=== PATIENT | female | born 2000 | race Caucasian/White ===

== ENCOUNTER 2019-05-03 19:22 | Emergency (ER) | payer OTHER, SELFPAY ==
[2019-05-03 20:34] VITALS: BP 115/69; PULSE 107; RESP 16; TEMP 37.2; O2SAT 100
--- NOTE | 2019-05-03 21:11 | ED.URI ---
HPI - URI/Sore Throat General Chief Complaint: Upper Respiratory Infection Stated Complaint: Sore Throat/SOB Time Seen by Provider: 05/03/19 21:18 Source: patient and RN notes reviewed Mode of arrival: ambulatory Limitations: no limitations History of Present Illness HPI Narrative: 18 year old female presents to [facility] care accompanied by daughter with complaint of three day history of nasal congestion and drainage and sore throat. Patient denies any cough or any acute shortness of breath or noted wheezing, patient states history of asthma.Patient states that nasal drainage is clear and she is eating and drinking well, denies any sinus pain or pressure. Patient states that she has had some low grade fevers denies any chills or sweats, states fatigue. MD elicited complaint: sore throat, rhinorrhea and nasal congestion Pertinent past history: asthma Onset (ago): day(s) (3) Consistency: constant Severity: moderate Pain scale (0-10): 5 Description of mucous: clear Able to tolerate fluids by mouth: Yes Exacerbating factors: swallowing Relieving factors: NSAID Associated symptoms: fever, rhinorrhea and sore throat Treatments prior to arrival: ibuprofen Related Data Allergies Allergy/AdvReac Type Severity Reaction Status Date / Time No Known Allergies Allergy Unverified 02/24/18 12:40 Review of Systems Review of Systems: Narrative: CONSTITUTIONAL: Reports low grade fever,no chills, or sweats. EYES: Denies visual changes, redness, or discharge. ENT positive for rhinorrhea, congestion, sore throat, no otalgia. CARDIOVASCULAR: Denies chest pain, palpitations, or edema. RESPIRATORY: Denies cough or acute dyspnea. GASTROINTESTINAL: Denies abdominal pain, nausea, vomiting, or diarrhea. GENITOURINARY: Denies dysuria or hematuria. SKIN: Denies rash or itching. MUSCULOSKELETAL: Denies back pain, joint pain, or myalgia. NEUROLOGIC: Denies headache, numbness, or weakness. PSYCHIATRIC: Denies anxiety or depression. All systems reviewed & are unremarkable except as noted in HPI and below PMFSH Past Medical History Medical History (Updated 05/10/19 @ 22:42 by Crystal Santos NP) Asthma Social History Social History (Updated 05/10/19 @ 22:42 by Crystal Santos NP) Living arrangements: with family Gender identity (if verbalized by the patient): Female Comments At time of signature, agree with nursing past medical,, social and family history. There is no relevant family history pertinent to the presenting complaint Exam Narrative: Exam Narrative: GENERAL: Well-appearing, well-nourished, and in no acute distress. HEAD: Normocephalic, atraumatic. EYES: PERRLA and EOMI. ENT: Nares clear, no rhinorrhea or epistaxis. Mucous membranes moist.TM's normal with good light reflex, Throat redness no lesions or exudate mild tonsil enlargement. NECK: Supple. no lymphadenopathy CHEST: Clear to auscultation. No respiratory distress. even non labored respirations.SAO2 100% on room air. HEART: Regular rate and rhythm. No murmur heard. Normal peripheral pulses. ABDOMEN: Soft, nontender, nondistended, normal active bowel sounds. EXTREMITIES: Normal range of motion. No edema. SKIN: Warm, dry, no rash. NEURO: No focal deficits. Alert and oriented x3. Course Vital Signs Vital signs: Vital Signs Temperature 37.2 C 05/03/19 20:34 Pulse Rate 107 H 05/03/19 20:34 Respiratory Rate 16 05/03/19 20:34 Blood Pressure 115/69 05/03/19 20:34 Pulse Oximetry 100 05/03/19 20:34 Temperature 37.2 C 05/03/19 20:34 Pulse Rate 107 H 05/03/19 20:34 Respiratory Rate 16 05/03/19 20:34 Blood Pressure 115/69 05/03/19 20:34 Pulse Oximetry 100 05/03/19 20:34 MDM - URI/Sore Throat Differential Diagnosis Differential diagnosis: Likely upper respiratory infection, viral infection, pharyngitis and other (Strep pharyngitis) Medical Records Attestation: I reviewed the patient's medical records. Lab Data Attestation: I reviewed
== END 2019-05-03 21:35 | disposition home or self-care (01) ==
PROVIDERS: Emergency Provider Registered Nurse
DX: J06.9 Acute upper respiratory infection, unspecified (principal); J02.9 Acute pharyngitis, unspecified; J45.909 Unspecified asthma, uncomplicated
CPT/HCPCS: 87081; 87880; 99213; G0463

== ENCOUNTER 2019-06-03 14:52 | Emergency (ER) | payer OTHER, SELFPAY ==
--- NOTE | 2019-06-03 14:59 | ED.GENADULT ---
HPI - General Adult General Chief complaint: Upper Respiratory Infection Stated complaint: right rib pain Time Seen by Provider: 06/03/19 15:21 Source: patient Mode of arrival: ambulatory Limitations: no limitations History of Present Illness HPI narrative: 18-year-old female patient presents to the [facility] with complaints of right rib pain and cough. Patient states that she was diagnosed with an upper respiratory infection/viral infection couple weeks ago and has been having a cough that has gotten better. Patient states that for the last 3 days she has had some rib pain especially with breathing and and twisting motion. Denies any injury that she is aware of. Denies any fevers. Denies any chest pain or shortness of breath at this time. Patient states she has took one aspirin yesterday for the pain but denies take anything else for the pain at this time. Patient denies or breast-feeding at this time. Related Data Home Medications Medication Instructions Recorded Confirmed medroxyprogesterone 150 mg IM [id number] 06/03/19 06/03/19 Allergies Allergy/AdvReac Type Severity Reaction Status Date / Time No Known Allergies Allergy Verified 06/03/19 14:57 Review of Systems Review of Systems: Narrative: CONSTITUTIONAL: Denies fever, chills, or sweats. EYES: Denies visual changes, redness, or discharge. ENT: Denies rhinorrhea, congestion, sore throat, or otalgia. CARDIOVASCULAR: Denies chest pain, palpitations, or edema. RESPIRATORY: Denies cough or dyspnea. GASTROINTESTINAL: Denies abdominal pain, nausea, vomiting, or diarrhea. GENITOURINARY: Denies dysuria or hematuria. SKIN: Denies rash or itching. MUSCULOSKELETAL: Denies back pain, joint pain, or myalgia. Positive right-sided rib pain x3 days NEUROLOGIC: Denies headache, numbness, or weakness. PSYCHIATRIC: Denies anxiety or depression. [facility] Past Medical History Medical History Asthma Social History Social History Gender identity (if verbalized by the patient): Female Comments At the time of my signature I agree with nursing past medical history, surgical, social, and family history. There is no relevant family history pertinent to the presenting complaint. Exam Narrative: Exam Narrative: GENERAL: Well-appearing, well-nourished, and in no acute distress. HEAD: Normocephalic, atraumatic. EYES: PERRLA and EOMI. ENT: Nares clear, no rhinorrhea or epistaxis. Mucous membranes moist. NECK: Supple. No lymphadenopathy CHEST: Clear to auscultation. No respiratory distress. Patient able talk in clear complete sentences. No tripoding noted. Patient does have slight tenderness on palpation to the 12th rib area but is most likely muscle pain. Ribs appear to be stable at this time. HEART: Regular rate and rhythm. No murmur heard. Normal peripheral pulses. ABDOMEN: Soft, nontender, nondistended, normal active bowel sounds. EXTREMITIES: Normal range of motion. No edema. SKIN: Warm, dry, no rash. NEURO: No focal deficits. Alert and oriented x3. Course Vital Signs Vital signs: Vital Signs Temperature 37.3 C 06/03/19 15:00 Pulse Rate 104 H 06/03/19 15:00 Respiratory Rate 16 06/03/19 15:00 Blood Pressure 147/68 H 06/03/19 15:00 Pulse Oximetry 100 06/03/19 15:00 Temperature 37.3 C 06/03/19 15:00 Pulse Rate 104 H 06/03/19 15:00 Respiratory Rate 16 06/03/19 15:00 Blood Pressure 147/68 H 06/03/19 15:00 Pulse Oximetry 100 06/03/19 15:00 Vital signs reviewed. Medical Decision Making Differential Diagnosis Differential Diagnosis: Differential diagnosis: Allergic rhinitis, chronic sinusitis, tonsillitis, acute sinusitis, infectious mononucleosis, seasonal influenza, pertussis, diphtheria, meningococcal disease, viral syndrome, viral bronchitis, RSV. Discussed with patient most likely she has inflammation and has pulled so
[2019-06-03 15:00] VITALS: BP 147/68; PULSE 104; RESP 16; TEMP 37.3; O2SAT 100
== END 2019-06-03 15:33 | disposition home or self-care (01) ==
PROVIDERS: Emergency Provider Nurse Practitioner Family
DX: M94.0 Chondrocostal junction syndrome [Tietze] (principal); J45.909 Unspecified asthma, uncomplicated
CPT/HCPCS: 99211; G0463

== ENCOUNTER 2019-09-13 17:06 | Emergency (ER) | payer OTHER, SELFPAY ==
[2019-09-13 17:21] VITALS: BP 146/84; PULSE 124; RESP 24; TEMP 37.4; O2SAT 100
[2019-09-13] MEDS: PROMETHAZINE HCL 25 MG/ML AMPUL IM (17:34)
--- NOTE | 2019-09-13 17:37 | ED.ANXIETY ---
HPI - Anxiety General Chief Complaint: Anxiety Stated Complaint: vomiting Time Seen by Provider: 09/13/19 17:37 Source: patient Mode of arrival: ambulatory Limitations: no limitations History of Present Illness HPI narrative: Emy Montelongo is a 19 yo female with a PMH of asthma who comes to express care with c/o asthma attack. Appears very anxious. Attack started today, used rescue inhaler x 5, last asthma attack 2 years ago. She states she does not know what triggered this episode. In process of changing pcp but sttaes that she can do this without assistance Related Data Home Medications Medication Instructions Recorded Confirmed medroxyprogesterone 150 mg IM [id number] 06/03/19 06/03/19 Allergies Allergy/AdvReac Type Severity Reaction Status Date / Time No Known Allergies Allergy Verified 06/03/19 14:57 Review of Systems Review of Systems: Narrative: CONSTITUTIONAL: Denies fever, chills, sweats. EYES: Denies visual changes, redness, discharge. ENT: Denies rhinorrhea, congestion, sore throat, otalgia. CARDIOVASCULAR: Denies chest pain, palpitations, edema. RESPIRATORY: Denies dyspnea, no wheezing, mild dry cough, increased respiratory effort GASTROINTESTINAL: Denies abdominal pain, nausea, vomiting, diarrhea. GENITOURINARY: Denies dysuria, hematuria, abnormal discharge SKIN: Denies rash or itching. NEUROLOGIC: Denies numbness, or focal weakness. PSYCHIATRIC: Denies anxiety or depression. [facility] Past Medical History Medical History Asthma Family History Family History Other Hypertension Social History Social History (Updated 09/13/19 @ 17:45 by Nasra Carroll CNP) Smoking status: Never smoker Alcohol intake: current Gender identity (if verbalized by the patient): Female Comments At time of signature, I agree with nursing past medical, surgical, social and family history. There is no relevant family history pertinent to the presenting complaint. Exam Narrative: Exam Narrative: GENERAL: This is a well-nourished, well-developed patient, in mild distress. Appears very anxious HEAD: normocephalic, atraumatic. EYES: Sclera clear/white. Vision is grossly intact. EARS: External ears normal, Hearing grossly intact. NOSE: External nose normal without nasal discharge, nares without redness, no rhinorrhea. THROAT: Mucous membranes moist, NECK: Neck supple, non-tender CARDIOVASCULAR: Regular rate and rhythm without murmurs, gallops, or rubs. RESPIRATORY: Coarse to auscultation. Breath sounds equal bilaterally. Nmild basilar wheezes, no rales, or rhonchi. GASTROINTESTINAL: Abdomen soft, non-tender, SKIN: warm, intact with no suspicious lesions or rash, good texture and turgor. NEURO: awake, alert, and oriented to person, place and time. There were no obvious focal neurologic abnormalities. Steady gait EXTREMITIES: Normal range of motion. BACK: Nontender without deformity Course Course Emergency Course: Given Phenergan 25 mg IM for anxiety Started on prednisone 40 mg a day x5 days with use of albuterol L inhaler as needed. patient to follow-up with a primary care physician Vital Signs Vital signs: Vital Signs Temperature 99.3 F 09/13/19 17:21 Pulse Rate 124 H 09/13/19 17:21 Respiratory Rate 24 H 09/13/19 17:21 Blood Pressure 146/84 H 09/13/19 17:21 Pulse Oximetry 100 09/13/19 17:21 Temperature 99.3 F 09/13/19 17:21 Pulse Rate 124 H 09/13/19 17:21 Respiratory Rate 24 H 09/13/19 17:21 Blood Pressure 146/84 H 09/13/19 17:21 Pulse Oximetry 100 09/13/19 17:21 MDM - Anxiety Differential Diagnosis Differential diagnosis: Likely hyperventilation, panic disorder, acute anxiety and other (asthma attack) Discharge Plan Discharge Clinical Impression: Acute anxiety Asthma attack Qualifiers: Asthma severity: mild Asthma persistence: intermittent Q
== END 2019-09-13 18:10 | disposition home or self-care (01) ==
PROVIDERS: Emergency Provider Nurse Practitioner
DX: F41.8 Other specified anxiety disorders (principal); J45.21 Mild intermittent asthma with (acute) exacerbation
CPT/HCPCS: 96372; 99213; G0463; J2550

== ENCOUNTER 2020-06-03 18:56 | Emergency (ER) | payer OTHER, SELFPAY ==
--- NOTE | 2020-06-03 19:00 | ED.LOWEXIN ---
HPI - Extremity Injury (Lower) General Chief Complaint: Extremity Problem,Nontraumatic Stated Complaint: right ankle pain Time Seen by Provider: 06/03/20 19:00 Source: patient and RN notes reviewed History of Present Illness HPI Narrative: Patient is a 19-year-old female who presents the urgent care with complaints of right ankle pain. Patient states is been ongoing for weeks and seems to have worsened in the last couple days. Patient states that she stands on her feet all day working at [employer]. Patient denies of any injury or fall. States that she sprained her ankles in the past but nothing recent. States that she has been wearing an ankle brace as well as elevating, ice. No other acute complaints. No acute distress noted. Patient aware of the plan of care. Some parts of this dictation were generated by voice recognition software and may contain typographical and/or grammatical inaccuracies. Related Data Home Medications Medication Instructions Recorded Confirmed medroxyprogesterone 150 mg IM [id number] 06/03/19 06/03/20 Allergies Allergy/AdvReac Type Severity Reaction Status Date / Time No Known Allergies Allergy Verified 06/03/20 19:07 Review of Systems Review of Systems: Narrative: CONSTITUTIONAL: Denies fever, chills, or sweats. EYES: Denies visual changes, redness, or discharge. ENT: Denies rhinorrhea, congestion, sore throat, or otalgia. CARDIOVASCULAR: Denies chest pain, palpitations, or edema. RESPIRATORY: Denies cough or dyspnea. GASTROINTESTINAL: Denies abdominal pain, nausea, vomiting, or diarrhea. GENITOURINARY: Denies dysuria or hematuria. SKIN: Denies rash or itching. MUSCULOSKELETAL: Reports of right ankle pain NEUROLOGIC: Denies headache, numbness, or weakness. All other systems reviewed are negative, except as documented in HPI. [facility] Past Medical History Medical History (Updated 06/03/20 @ 19:16 by ELIE Brand) Asthma Family History Family History Other Hypertension Social History Social History (Updated 09/13/19 @ 17:45 by Nasra Carroll CNP) Smoking status: Never smoker Alcohol intake: current Gender identity (if verbalized by the patient): Female Comments At the time of my signature, I reviewed and agree with the nursing past medical, surgical, social, and family history. There is no relevant family history pertinent to the patient complaint. Exam Narrative: Exam Narrative: GENERAL: This is a well-nourished, well-developed patient, in no apparent distress. HEAD: normocephalic, atraumatic. EYES: PERRL. Sclera clear/white. Vision is grossly intact. EARS: External ears normal NOSE: External nose normal with no obvious nasal discharge, nares without redness, no rhinorrhea. THROAT: Mucous membranes moist NECK: Neck supple SKIN: warm, intact with no suspicious lesions or rash, good texture and turgor. NEURO: awake, alert, and oriented to person, place and time. There were no obvious focal neurologic abnormalities. EXTREMITIES: No obvious deformity or fracture noted to the right lower extremity. Positive strong right pedal pulse with capillary refill less than 2 seconds. Mild pain with weightbearing activity. Otherwise range of motion within normal limits. No obvious ecchymosis. Very mild edema noted distal to the right medial malleolus. Course Vital Signs Vital signs: Vital Signs Temperature 98.9 F 06/03/20 19:13 Pulse Rate 112 H 06/03/20 19:13 Respiratory Rate 16 06/03/20 19:13 Blood Pressure 134/80 06/03/20 19:13 Pulse Oximetry 100 06/03/20 19:13 Temperature 98.9 F 06/03/20 19:13 Pulse Rate 112 H 06/03/20 19:13 Respiratory Rate 16 06/03/20 19:13 Blood Pressure 134/80 06/03/20 19:13 Pulse Oximetry 100 06/03/20 19:13 Reviewed MDM - Extremity Injury (Lower) MDM Narrative Medical decision making narrative: Advised the patient to continue to wear her ankle b
[2020-06-03 19:13] VITALS: BP 134/80; PULSE 112; RESP 16; TEMP 37.2; O2SAT 100
== END 2020-06-03 19:24 | disposition home or self-care (01) ==
PROVIDERS: Emergency Provider Nurse Practitioner Family
DX: M77.51 Other enthesopathy of right foot and ankle (principal); J45.909 Unspecified asthma, uncomplicated
CPT/HCPCS: 99213; G0463

== ENCOUNTER 2020-06-06 18:52 | Emergency (ER) | payer OTHER, SELFPAY ==
[2020-06-06 19:10] VITALS: BP 126/77; PULSE 128; RESP 20; TEMP 39.2; O2SAT 100
[2020-06-06 19:11] VITALS: TEMP 39.2
[2020-06-06] MEDS: ACETAMINOPHEN 500 MG TABLET 1000 MG PO (19:11)
--- NOTE | 2020-06-06 19:28 | ED.URI ---
HPI - URI/Sore Throat General Chief Complaint: Upper Respiratory Infection Stated Complaint: Sore Throat Time Seen by Provider: 06/06/20 19:13 Source: patient and RN notes reviewed Mode of arrival: ambulatory Limitations: no limitations History of Present Illness HPI Narrative: Patient presents today complaint of a 2-day history of sore throat that has worsened significantly since this morning with chills that started this morning and a mild headache. Denies known fever, ear pain, cough, congestion, rhinorrhea, difficulty swallowing, shortness of breath. She took ibuprofen 800 mg a few hours prior to arrival. States she has been sleeping most the day because she has been so tired. Pain increases with swallowing. No recent antibiotic use. MD elicited complaint: sore throat Related Data Allergies Allergy/AdvReac Type Severity Reaction Status Date / Time No Known Allergies Allergy Verified 06/06/20 18:58 Review of Systems Review of Systems: Narrative: CONSTITUTIONAL: Denies body aches, fever, or sweats. + Chills EYES: Denies visual changes, redness, or discharge. ENT: Denies rhinorrhea, congestion, or otalgia.+ Sore throat CARDIOVASCULAR: Denies chest pain, palpitations, or edema. RESPIRATORY: Denies cough or dyspnea. GASTROINTESTINAL: Denies abdominal pain, nausea, vomiting, or diarrhea. GENITOURINARY: Denies dysuria or hematuria. SKIN: Denies rash, itching, or wounds. MUSCULOSKELETAL: Denies back pain, joint pain, or myalgia. NEUROLOGIC: Denies numbness, tingling, or weakness. + Headache PSYCH: Denies depression or anxiety. PMFSH Past Medical History Medical History (Updated 06/07/20 @ 00:00 by Sal Brooks) Asthma Family History Family History Other Hypertension Social History Social History (Updated 09/13/19 @ 17:45 by Nasra Carroll CNP) Smoking status: Never smoker Alcohol intake: current Gender identity (if verbalized by the patient): Female Comments At time of signature, I have reviewed and agree with nursing past medical, surgical, social and family history unless otherwise noted. Please see nursing chart for further information. There is no relevant family history pertinent to the presenting complaint Exam Narrative: Exam Narrative: GENERAL: ill-appearing, well-nourished, and in no acute distress. HEAD: Normocephalic, atraumatic. EYES: EOMI. No redness or drainage. Conjunctivae normal. ENT: Mucous membranes pink and moist. Nares clear. No rhinorrhea. TMs normal bilaterally. Throat moderately erythematous and edematous. Tonsils 3+ without exudate. Uvula midline. Grimacing with swallowing. NECK: Normal AROM. Supple. Bilateral anterior cervical chain lymphadenopathy. CHEST: No respiratory distress. Clear to auscultation. HEART: Regular rhythm. + Tachycardia. No murmur appreciated. Normal peripheral pulses. EXTREMITIES: Normal range of motion. No edema. SKIN: Warm, dry, no rash. Capillary refill normal. Normal skin turgor. NEURO: No focal deficits. Alert and oriented x3. Gait steady. PSYCH: Normal affect. No signs of depression or anxiety. Course Vital Signs Vital signs: Vital Signs Temperature 102.5 F H 06/06/20 19:10 Pulse Rate 128 H 06/06/20 19:10 Respiratory Rate 20 06/06/20 19:10 Blood Pressure 126/77 06/06/20 19:10 Pulse Oximetry 100 06/06/20 19:10 Temperature 100.9 F H 06/06/20 19:41 Pulse Rate 128 H 06/06/20 19:10 Respiratory Rate 100 H 06/06/20 19:41 Blood Pressure 126/77 06/06/20 19:10 Pulse Oximetry 100 06/06/20 19:10 Reviewed. Pt has been instructed to follow up with her PCP regarding her elevated blood pressure today. MDM - URI/Sore Throat Differential Diagnosis Differential diagnosis: Likely upper respiratory infection, otitis media, viral infection, pharyngitis and other (Tonsillitis, strep throat, mononucleosis) Lab Data Attestation: I reviewed the patient's lab r
[2020-06-06 19:41] VITALS: RESP 100; TEMP 38.3
== END 2020-06-06 19:41 | disposition home or self-care (01) ==
PROVIDERS: Emergency Provider Nurse Practitioner
DX: J03.00 Acute streptococcal tonsillitis, unspecified (principal); J45.909 Unspecified asthma, uncomplicated
CPT/HCPCS: 87880; 96372; 99213; A9270; G0463; J1100

== ENCOUNTER 2021-10-17 16:49 | Emergency (ER) | payer OTHER, SELFPAY ==
--- NOTE | ~2021-10-17 | XR_ITS ---
EXAM: XR forearm RT 2V DATE: 10/17/2021 17:15 HISTORY: INJURY 2 DAYS AGO, BRUISING MID SHAFT OF RT FOREAR . COMPARISON: None available. FINDINGS: Normal mineralization. No fracture or dislocation. No lytic or blastic lesion. Joint space s are maintained. No erosion or periosteal change. Posterior forearm soft tissue swelling. IMPRESSION: No acute osseous finding in the right forearm. Reviewed, dictated and finalized at location K.
[2021-10-17 16:57] VITALS: BP 119/67; PULSE 91; RESP 16; TEMP 36.7; O2SAT 100
--- NOTE | 2021-10-17 17:26 | ED.UPPEXIN ---
HPI - Extremity Injury (Upper) General Chief Complaint: Extremity Injury, Upper Stated Complaint: Right Arm Pain Time Seen by Provider: 10/17/21 17:18 Source: patient Mode of arrival: ambulatory Limitations: no limitations History of Present Illness HPI narrative: Patient presents today complaining of right forearm pain. States she slipped and fell and struck her arm against a stepstool 2 days ago. She currently rates her pain 4/10, which increases with movement. She has tried Tylenol and ibuprofen without relief. She reports some tingling in her hand. Related Data Allergies Allergy/AdvReac Type Severity Reaction Status Date / Time No Known Allergies Allergy Verified 10/17/21 17:25 Review of Systems Review of Systems: CONSTITUTIONAL: Denies body aches, fever, chills, or sweats. EYES: Denies visual changes, redness, or discharge. ENT: Denies rhinorrhea, congestion, sore throat, or otalgia. CARDIOVASCULAR: Denies chest pain, palpitations, or edema. RESPIRATORY: Denies cough or dyspnea. GASTROINTESTINAL: Denies abdominal pain, nausea, vomiting, or diarrhea. GENITOURINARY: Denies dysuria or hematuria. SKIN: Denies rash, itching, or wounds. MUSCULOSKELETAL: Denies back pain, or myalgia.+Right forearm pain NEUROLOGIC: Denies headache, numbness, or weakness.+Right hand tingling PSYCH: Denies depression or anxiety. [facility] Past Medical History Medical History (Updated 10/17/21 @ 18:03 by Isabel Gonzales, [facility], ) Asthma Family History Family History Other Hypertension Social History Social History Smoking status: Never smoker Alcohol intake: current Gender identity (if verbalized by the patient): Female Comments At time of signature, I have reviewed and agree with nursing past medical, surgical, social and family history unless otherwise noted. Please see nursing chart for further information. There is no relevant family history pertinent to the presenting complaint Exam Narrative: GENERAL: Well-appearing, well-nourished, and in no acute distress. HEAD: Normocephalic, atraumatic. EYES: EOMI. No redness or drainage. Conjunctivae normal. ENT: Mucous membranes pink and moist. NECK: Normal AROM. CHEST: No respiratory distress. EXTREMITIES: Right forearm: Tenderness to the mid ulna. No edema, ecchymosis, or erythema noted. No deformity noted. Distal sensation intact. Capillary refill normal. Radial pulse normal. Full range of motion of the fingers, wrist, and elbow. Pain in the forearm with range of motion of the elbow. SKIN: Warm, dry, no rash. Capillary refill normal. Normal skin turgor. NEURO: No focal deficits. Alert and oriented x3. Gait steady. PSYCH: Normal affect. No signs of depression or anxiety. Course Course Level of Care: Express Care Visit Vital Signs Vital signs: Vital Signs Temperature 98.1 F 10/17/21 16:57 Pulse Rate 91 10/17/21 16:57 Respiratory Rate 16 10/17/21 16:57 Blood Pressure 119/67 10/17/21 16:57 Pulse Oximetry 100 10/17/21 16:57 Oxygen Delivery Room Air 10/17/21 16:57 Temperature 98.1 F 10/17/21 16:57 Pulse Rate 91 10/17/21 16:57 Respiratory Rate 16 10/17/21 16:57 Blood Pressure 119/67 10/17/21 16:57 Pulse Oximetry 100 10/17/21 16:57 Oxygen Delivery Room Air 10/17/21 16:57 Reviewed MDM - Extremity Injury (Upper) Differential Diagnosis Differential diagnosis: Likely other (Contusion, fracture) Imaging Data Radiologist's impression: ITS Impressions Forearm X-Ray 10/17/21 17:48 IMPRESSION: No acute osseous finding in the right forearm. Critical Care Time Critical Care Time Critical Care Time: No Discharge Plan Discharge Clinical Impression: Contusion of forearm, right Patient Disposition: Home, Self-Care Condition: Stable Instructions: Contusion in
== END 2021-10-17 18:07 | disposition home or self-care (01) ==
PROVIDERS: Emergency Provider Nurse Practitioner
DX: S50.11XA Contusion of right forearm, initial encounter (principal); W01.198A Fall on same level from slipping, tripping and stumbling with subsequent striking against other object, initial encounter; J45.909 Unspecified asthma, uncomplicated
CPT/HCPCS: 73090; 99213; G0463

== ENCOUNTER 2022-01-06 13:13 | Emergency (ER) | payer OTHER, SELFPAY ==
[2022-01-06 13:25] VITALS: BP 110/60; PULSE 116; RESP 16; TEMP 37.2; O2SAT 100
--- NOTE | 2022-01-06 14:18 | ED.URI ---
HPI - URI/Sore Throat General Chief Complaint: Upper Respiratory Infection Stated Complaint: Coughing, Sore Throat Time Seen by Provider: 01/06/22 13:50 Source: patient Mode of arrival: ambulatory Limitations: no limitations History of Present Illness HPI Narrative: Emy is a 21-year-old female patient presenting to the clinic today with complaints of coughing and sore throat x 2-3 days. She denies any fever or chills. MD elicited complaint: cough, sore throat and nasal congestion Related Data Home Medications Medication Instructions Recorded Confirmed No Home Medications 01/06/22 01/06/22 Allergies Allergy/AdvReac Type Severity Reaction Status Date / Time No Known Allergies Allergy Verified 01/06/22 13:38 Review of Systems Review of Systems: Pertinent positives per HPI. Patient denies any fever, chills, rash, headache, visual changes, dizziness, shortness of breath, chest pain, palpitations, nausea, vomiting, diarrhea, constipation, abdominal pain, or any urinary issues. PMFSH Past Medical History Medical History Asthma Family History Family History Other Hypertension Social History Social History Smoking status: Never smoker Alcohol intake: current Gender identity (if verbalized by the patient): Female Comments At the time of my signature, I reviewed and agree with the nursing past medical, surgical, social, and family history. There is no relevant family history pertinent to the patient complaint. Exam Narrative: General: Well-developed, well nourished, in no apparent distress Head: Normocephalic, atraumatic Eyes: Pupils equally round and reactive to light bilaterally, EOM intact, sclera and conjunctive clear, no discharge, lids normal Ears: TMs intact and clear, ear canals clear, no drainage, grossly hearing normal. Nose: Nares patent, clear nasal discharge, mild inflammation, no sinus tenderness. Mouth: Oral pharynx without lesions or masses, good dentition, MMM. postnasal drip Neck: Supple, trachea midline, no enlargement of anterior or posterior cervical nodes, no thyroid masses or goiter palpable. Cardio: Regular rate and rhythm, s1 and s2 normal, no murmur appreciated. Resp: Clear to auscultation bilaterally, no rhonchi, rales, wheezing or rubs Course Course Emergency Course: Portions of this record may have been created with voice recognition software. Level of Care: Express Care Visit Vital Signs Vital signs: Vital Signs Temperature 37.2 C 01/06/22 13:25 Pulse Rate 116 H 01/06/22 13:25 Respiratory Rate 16 01/06/22 13:25 Blood Pressure 110/60 01/06/22 13:25 Pulse Oximetry 100 01/06/22 13:25 Oxygen Delivery Room Air 01/06/22 13:25 Temperature 37.2 C 01/06/22 13:25 Pulse Rate 116 H 01/06/22 13:25 Respiratory Rate 16 01/06/22 13:25 Blood Pressure 110/60 01/06/22 13:25 Pulse Oximetry 100 01/06/22 13:25 Oxygen Delivery Room Air 01/06/22 13:25 Vital signs reviewed MDM - URI/Sore Throat MDM Narrative Medical decision making narrative: at the time of the patient is resting comfortably on the exam table. Influenza and strep testing were obtained and were negative in the clinic today. I suspect patient has an upper respiratory infection /pharyngitis.Supportive measures were discussed with the patient she voiced understanding of discharge instructions. Differential Diagnosis Differential diagnosis: Likely sinusitis, viral infection, influenza and pharyngitis Lab Data Labs: Influenza A Screen Negative Reference Range: Negative Influenza B Screen Negative Reference Range: Negative Strep Screen Pre
== END 2022-01-06 14:23 | disposition home or self-care (01) ==
PROVIDERS: Emergency Provider Nurse Practitioner Family
DX: J06.9 Acute upper respiratory infection, unspecified (principal); J02.9 Acute pharyngitis, unspecified; J45.909 Unspecified asthma, uncomplicated
CPT/HCPCS: 87081; 87147; 87804; 87880; 99213; G0463

== ENCOUNTER 2022-02-02 08:34 | Emergency (ER) | payer OTHER, SELFPAY ==
--- NOTE | 2022-02-02 09:00 | ED.FEMALEGU ---
HPI - Female Genitourinary General Chief complaint: Urogenital-Female Stated complaint: Vaginal Problems Time Seen by Provider: 02/02/22 09:08 Source: patient Mode of arrival: ambulatory Limitations: no limitations History of Present Illness HPI Narrative: Ms. Kt Stack is a 21-year-old female patient presenting to the clinic today with complaints of vaginal issues. She reports she has been having some lower abdominal pain x2 weeks with yellowish white vaginal discharge x1 0.5 weeks. She denies any fever chills. She denies any flank pain. He is sexually active. Her last menstrual period was on January 08. She denies any chance of . Related Data Allergies Allergy/AdvReac Type Severity Reaction Status Date / Time No Known Allergies Allergy Verified 02/02/22 09:11 Review of Systems Review of Systems: Pertinent positives per HPI. Patient denies any fever, chills, rash, headache, visual changes, dizziness, cough, runny nose, sore throat, shortness of breath, chest pain, palpitations, nausea, vomiting, diarrhea, constipation, PMFSH Past Medical History Medical History (Updated 02/02/22 @ 10:00 by Ric Sherman APRN) Asthma Family History Family History Other Hypertension Social History Social History Smoking status: Never smoker Alcohol intake: current Gender identity (if verbalized by the patient): Female Comments At the time of my signature, I reviewed and agree with the nursing past medical, surgical, social, and family history. There is no relevant family history pertinent to the patient complaint. Exam Narrative: General: Well-developed, obese, in no apparent distress Head: Normocephalic, atraumatic. Cardio: Regular rate and rhythm, s1 and s2 normal, no murmur appreciated. Resp: Clear to auscultation bilaterally, no rhonchi, rales, wheezing or rubs. Abdomen: Soft, pliable, bowel sounds present in all quadrants, non-tender to palpation, no CVAT tenderness. : Pelvic exam performed with (Melodie GRANDA) at bedside. Verbal consent obtained from patient. Normal external female genitalia without lesions or masses, vulva is red and excoriated Urinary meatus: patent without discharge, Vagina: No lesions, or masses, white yellowish discharge in the pelvic vault Cervix: pink and friable without mass, lesions, yellowish white discharge coming from cervical os, tender to palpation of the cervix Adnexa: without palpable mass or tenderness. Course Course Emergency Course: Portions of this record may have been created with voice recognition software. Level of Care: Express Care Visit Vital Signs Vital signs: Vital Signs Temperature 36.3 C L 02/02/22 09:08 Pulse Rate 120 H 02/02/22 09:08 Respiratory Rate 18 02/02/22 09:08 Blood Pressure 141/79 H 02/02/22 09:08 Pulse Oximetry 100 02/02/22 09:08 Oxygen Delivery Room Air 02/02/22 09:08 Temperature 36.3 C L 02/02/22 09:08 Pulse Rate 120 H 02/02/22 09:08 Respiratory Rate 18 02/02/22 09:08 Blood Pressure 141/79 H 02/02/22 09:08 Pulse Oximetry 100 02/02/22 09:08 Oxygen Delivery Room Air 02/02/22 09:08 Vital signs reviewed MDM - Female Genitourinary MDM Narrative Medical decision making narrative: at the time of visit patient is resting comfortably on the exam table. I suspect the patient has STD likely chlamydia. She has cervicitis with vaginal discharge and lower abdominal pain. (pid) .Pelvic exam was completed and she has yellowish white discharge coming from the cervix and the cervix is very friable and tender to palpation. Rocephin 500 mg IM given in the clinic today, will send prescription for doxycycline and metronidazole to the pharmacy. Supportive measures were discussed with the patient she voiced understanding of discharge instructions and agrees to tr
[2022-02-02 09:08] VITALS: BP 141/79; PULSE 120; RESP 18; TEMP 36.3; O2SAT 100
[2022-02-02] MEDS: cefTRIAXone 500 MG, LIDOCAINE HCL 1% LOCAL INJ 1 ML IM (09:56)
== END 2022-02-02 10:10 | disposition home or self-care (01) ==
PROVIDERS: Emergency Provider Nurse Practitioner Family
DX: N72 Inflammatory disease of cervix uteri (principal); R10.30 Lower abdominal pain, unspecified; J45.909 Unspecified asthma, uncomplicated
CPT/HCPCS: 81003; 87070; 87086; 87088; 87491; 87591; 87661; 96372; 99213; G0463; J0696

== ENCOUNTER 2022-02-25 18:53 | Emergency (ER) | payer OTHER, SELFPAY ==
[2022-02-25 19:04] VITALS: BP 124/74; PULSE 104; RESP 16; TEMP 36.8; O2SAT 100
--- NOTE | 2022-02-25 19:16 | ED.DENTAL ---
HPI - Dental/Oral General Chief complaint: Dental/Oral Stated complaint: Dental Pain Time Seen by Provider: 02/25/22 19:17 Source: patient Mode of arrival: ambulatory History of Present Illness HPI Narrative: 21-year-old female presented for complaint of right lower gum swelling and pain for 2 days. She endorses 2 nights ago she chipped a tooth while sleeping. She has attempted Tylenol and ibuprofen and Orajel without relief. She denies nausea, vomiting, diarrhea, fevers or chills. Patient does not have a dentist. MD Complaint: tooth pain Related Data Allergies Allergy/AdvReac Type Severity Reaction Status Date / Time No Known Allergies Allergy Verified 02/25/22 19:00 Review of Systems Review of Systems: CONSTITUTIONAL: Denies body aches, fever, chills ENT: Denies rhinorrhea, congestion, sore throat, or otalgia. Reports dental pain CARDIOVASCULAR: Denies chest pain, palpitations RESPIRATORY: Denies cough or dyspnea. SKIN: Denies rash, itching, or wounds. MUSCULOSKELETAL: Denies myalgia. NEUROLOGIC: Denies headache, numbness, tingling, or weakness. [facility] Past Medical History Medical History Asthma Family History Family History Other Hypertension Social History Social History Smoking status: Never smoker Alcohol intake: current Gender identity (if verbalized by the patient): Female Comments At time of signature, I have reviewed and agree with nursing past medical, surgical, social and family history unless otherwise noted. Please see nursing chart for further information. There is no relevant family history pertinent to the presenting complaint Exam Narrative: GENERAL: Appears in pain; no acute distress. HEAD: Normocephalic, atraumatic. EYES: EOMI. No redness or drainage. Conjunctivae normal. ENT: Dental pain location of fractured teeth at #29 and #30; mild gum/jaw swelling and tenderness; poor dentition throughout with gingivitis and multiple caries/broken teeth Mucous membranes pink and moist. TMs normal bilaterally. Throat normal. Uvula midline. NECK: Normal AROM. No lymphadenopathy. CHEST: No respiratory distress. Clear to auscultation. HEART: Regular rate and rhythm. No murmur appreciated. SKIN: Warm, dry, no rash. Normal skin turgor. NEURO: Alert and oriented x3. Gait steady. Course Course Emergency Course: Patient is aware of diagnosis, understands and agrees to treatment plan. Anticipatory guidance given. Patient agrees to follow-up as directed and is aware of reasons to seek care at the emergency department. Portions of this record may have been created with voice recognition software Level of Care: Express Care Visit Vital Signs Vital signs: Vital Signs Temperature 98.3 F 02/25/22 19:04 Pulse Rate 104 H 02/25/22 19:04 Respiratory Rate 16 02/25/22 19:04 Blood Pressure 124/74 02/25/22 19:04 Pulse Oximetry 100 02/25/22 19:04 Oxygen Delivery Room Air 02/25/22 19:04 Temperature 98.3 F 02/25/22 19:04 Pulse Rate 104 H 02/25/22 19:04 Respiratory Rate 16 02/25/22 19:04 Blood Pressure 124/74 02/25/22 19:04 Pulse Oximetry 100 02/25/22 19:04 Oxygen Delivery Room Air 02/25/22 19:04 MDM - Dental/Oral MDM Narrative Medical decision making narrative: There are no focal signs of space occupying lesions that are compromising to the airway; Patient is non-toxic appearing. The floor of the mouth is soft with no signs of Vic's Angina; no induration below mandible, no neck pain. Patient is without trismus or drooling and able to swallow secretions. Patient is felt appropriate for discharge home with dental follow up. Rx abx and ibuprofen. Differential Diagnosis Differential diagnosis: Likely gingival abscess, dental caries, toothache, dental abscess, fracture of too
== END 2022-02-25 19:36 | disposition home or self-care (01) ==
PROVIDERS: Emergency Provider Nurse Practitioner Family
DX: K08.89 Other specified disorders of teeth and supporting structures (principal); J45.909 Unspecified asthma, uncomplicated
CPT/HCPCS: 99213; G0463

== ENCOUNTER 2022-06-08 10:40 | Emergency (ER) | payer OTHER, SELFPAY ==
[2022-06-08 10:56] VITALS: BP 142/79; PULSE 83; RESP 16; TEMP 36.4; O2SAT 100
--- NOTE | 2022-06-08 11:19 | ED.URI ---
HPI - URI/Sore Throat General Chief Complaint: Upper Respiratory Infection Stated Complaint: Sore Throat Time Seen by Provider: 06/08/22 11:00 Source: patient Mode of arrival: ambulatory Limitations: no limitations History of Present Illness HPI Narrative: Emy is a 21-year-old female patient presenting to the clinic today with complaints of sore throat, cough, and nasal congestion times 2 days. Her daughter tested positive for strep last week. She denies any fever chills MD elicited complaint: sore throat and nasal congestion Related Data Home Medications Medication Instructions Recorded Confirmed No Home Medications 06/08/22 06/08/22 Allergies Allergy/AdvReac Type Severity Reaction Status Date / Time No Known Allergies Allergy Verified 06/08/22 11:15 Review of Systems Review of Systems: Pertinent positives per HPI. Patient denies any fever, chills, rash, headache, visual changes, dizziness,shortness of breath, chest pain, palpitations, nausea, vomiting, diarrhea, constipation, abdominal pain, or any urinary issues. [facility] Past Medical History Medical History (Updated 06/08/22 @ 11:21 by Ric Sherman APRN) Asthma Family History Family History Other Hypertension Social History Social History Smoking status: Never smoker Alcohol intake: current Living arrangements: with family Gender identity (if verbalized by the patient): Female Comments At the time of my signature, I reviewed and agree with the nursing past medical, surgical, social, and family history. There is no relevant family history pertinent to the patient complaint. Exam Narrative: General: Well-developed, well nourished, in no apparent distress Head: Normocephalic, atraumatic Eyes: Pupils equally round and reactive to light bilaterally, EOM intact, sclera and conjunctive clear, no discharge, lids normal Ears: TMs intact and clear, ear canals clear, no drainage, grossly hearing normal. Nose: Nares patent, clear nasal discharge, mild inflammation, no sinus tenderness. Mouth: Oral pharynx without lesions or masses, good dentition, MMM. Neck: Supple, trachea midline, no enlargement of anterior or posterior cervical nodes, no thyroid masses or goiter palpable. Cardio: Regular rate and rhythm, s1 and s2 normal, no murmur appreciated. Resp: Clear to auscultation bilaterally, no rhonchi, rales, wheezing or rubs Course Course Emergency Course: Portions of this record may have been created with voice recognition software. Level of Care: Express Care Visit Vital Signs Vital signs: Vital Signs Temperature 36.4 C 06/08/22 10:56 Pulse Rate 83 06/08/22 10:56 Respiratory Rate 16 06/08/22 10:56 Blood Pressure 142/79 H 06/08/22 10:56 Pulse Oximetry 100 06/08/22 10:56 Oxygen Delivery Room Air 06/08/22 10:56 Temperature 36.4 C 06/08/22 10:56 Pulse Rate 83 06/08/22 10:56 Respiratory Rate 16 06/08/22 10:56 Blood Pressure 142/79 H 06/08/22 10:56 Pulse Oximetry 100 06/08/22 10:56 Oxygen Delivery Room Air 06/08/22 10:56 Vital signs reviewed MDM - URI/Sore Throat MDM Narrative Medical decision making narrative: At the time of visit patient is resting comfortably on exam table. Strep screen was obtained and was negative in the clinic today. Will send strep for culture. Patient declining COVID testing. Supportive measures were discussed with the patient she voiced understanding discharge instructions and agrees to treatment plan. Differential Diagnosis Differential diagnosis: Likely upper respiratory infection, otitis media, sinusitis, viral infection, bronchitis, influenza, pharyngitis and other (COVID) Lab Data Labs: Strep Screen Presumptive Negative *(Reference Range: Negative)* Discharge Plan Disc
== END 2022-06-08 11:23 | disposition home or self-care (01) ==
PROVIDERS: Emergency Provider Nurse Practitioner Family
DX: J02.9 Acute pharyngitis, unspecified (principal)
CPT/HCPCS: 87081; 87880; 99213; G0463

== ENCOUNTER 2022-11-07 12:32 | Emergency (ER) | payer OTHER, SELFPAY ==
--- NOTE | ~2022-11-07 | XR_ITS ---
XR hand LT min 3V DATE: 11/07/2022 13:07 INDICATION: Smashed hand in door yesterday. Distal first metacarpal pain TECHNIQUE: 3 views COMPARISON: None FINDINGS: No fracture or dislocation, periosteal reaction or bone destruction. Joint spaces are prese rved. No erosive change or chondrocalcinosis. IMPRESSION: Negative Reviewed, dictated and finalized at location A. IMPRESSION: Negative
[2022-11-07 12:59] VITALS: BP 137/82; PULSE 87; RESP 18; TEMP 36.6; O2SAT 100
--- NOTE | 2022-11-07 13:53 | ED.GENADULT ---
HPI - General Adult General Chief complaint: Extremity Injury, Upper Stated complaint: Lt Hand Injury Time Seen by Provider: 11/07/22 13:53 Source: patient Mode of arrival: ambulatory Limitations: no limitations History of Present Illness HPI narrative: 22-year-old female patient presents to the [facility] with complaints of left hand pain. Patient states she smashed in a door yesterday while at work. Patient states she iced it a little bit yesterday but denies taking anything for pain. Patient states that is a little swollen today and is sore on palpitation. Related Data Home Medications Medication Instructions Recorded Confirmed No Home Medications 06/08/22 11/07/22 Allergies Allergy/AdvReac Type Severity Reaction Status Date / Time No Known Allergies Allergy Verified 11/07/22 13:20 Review of Systems Review of Systems: CONSTITUTIONAL: Denies fever, chills, or sweats. EYES: Denies visual changes, redness, or discharge. ENT: Denies rhinorrhea, congestion, sore throat, or otalgia. CARDIOVASCULAR: Denies chest pain, palpitations, or edema. RESPIRATORY: Denies cough or dyspnea. GASTROINTESTINAL: Denies abdominal pain, nausea, vomiting, or diarrhea. GENITOURINARY: Denies dysuria or hematuria. SKIN: Denies rash or itching. MUSCULOSKELETAL: Denies back pain, joint pain, or myalgia. Positive left hand pain NEUROLOGIC: Denies headache, numbness, or weakness. PSYCHIATRIC: Denies anxiety or depression. PMFSH Past Medical History Medical History Asthma Family History Family History Other Hypertension Social History Social History Smoking status: Never smoker Alcohol intake: current Living arrangements: with family Gender identity (if verbalized by the patient): Female Comments At the time of my signature I agree with nursing past medical history, surgical, social, and family history. There is no relevant family history pertinent to the presenting complaint. Exam Narrative: GENERAL: Well-appearing, well-nourished, and in no acute distress. HEAD: Normocephalic, atraumatic. EYES: PERRLA and EOMI. ENT: Nares clear, no rhinorrhea or epistaxis. Mucous membranes moist. NECK: Supple. No lymphadenopathy CHEST: Clear to auscultation. No respiratory distress. HEART: Regular rate and rhythm. No murmur heard. Normal peripheral pulses. ABDOMEN: Soft, nontender, nondistended, normal active bowel sounds. EXTREMITIES: Normal range of motion. patient has slight swelling noted to the base of the left thumb on the palm side with some bruising and tenderness noted. Patient does have excellent range of motion to the fingers and hands. Radial pulses are 2+. SKIN: Warm, dry, no rash. NEURO: No focal deficits. Alert and oriented x3. Course Course Level of Care: Express Care Visit Vital Signs Vital signs: Vital Signs Temperature 36.6 C 11/07/22 12:59 Pulse Rate 87 11/07/22 12:59 Respiratory Rate 18 11/07/22 12:59 Blood Pressure 137/82 11/07/22 12:59 Pulse Oximetry 100 11/07/22 12:59 Oxygen Delivery Room Air 11/07/22 12:59 Temperature 36.6 C 11/07/22 12:59 Pulse Rate 87 11/07/22 12:59 Respiratory Rate 18 11/07/22 12:59 Blood Pressure 137/82 11/07/22 12:59 Pulse Oximetry 100 11/07/22 12:59 Oxygen Delivery Room Air 11/07/22 12:59 Vital signs reviewed. The patient has been informed that they may have pre-hypertension or Hypertension based on a BP reading in the department. I recommend that the patient call the primary care provider listed on their discharge instructions or a physician of their choice this week to arrange follow up for further evaluation of possible pre-hypertension or Hypertension Medical Decision Making MDM Narrative Medical decision making narrative: Discussed with erwin
== END 2022-11-07 14:00 | disposition home or self-care (01) ==
PROVIDERS: Emergency Provider Nurse Practitioner Family
DX: S60.222A Contusion of left hand, initial encounter (principal); X58.XXXA Exposure to other specified factors, initial encounter; Y99.0 Civilian activity done for income or pay; J45.909 Unspecified asthma, uncomplicated
CPT/HCPCS: 73130; 99213; G0463

== ENCOUNTER 2023-02-15 10:41 | Emergency (ER) | payer OTHER, SELFPAY ==
[2023-02-15 10:51] VITALS: BP 127/85; PULSE 83; RESP 16; TEMP 37.2; O2SAT 99
--- NOTE | 2023-02-15 10:53 | ED.DENTAL ---
HPI - Dental/Oral General Chief complaint: Dental/Oral Stated complaint: Dental Pain Time Seen by Provider: 02/15/23 11:33 Mode of arrival: ambulatory Limitations: no limitations History of Present Illness HPI Narrative: 22-year-old female who is 9 weeks presents concern for left lower dental pain for 2 days. Reports she has had some problem with her teeth including broken teeth. She has not recently broken any tooth. She has a dentist but she is not able to get an in 2-3 months. Reports she has been taking Tylenol without relief, using Orajel without relief Complaint: tooth pain Related Data Allergies Allergy/AdvReac Type Severity Reaction Status Date / Time No Known Allergies Allergy Verified 02/15/23 10:50 Review of Systems Review of Systems: CONSTITUTIONAL: Denies malaise, chills, sweats, or fever. EYES: Denies visual changes ENT: Denies rhinorrhea, congestion, sinus pain, otalgia or sore throat. Reports left lower dental pain CARDIOVASCULAR: Denies chest pain, palpitations RESPIRATORY: Denies cough or dyspnea. SKIN: Denies rash or itching. MUSCULOSKELETAL: Denies myalgia. NEUROLOGIC: Denies numbness, weakness, or headache. All systems reviewed & are unremarkable except as noted in HPI and below PMFSH Past Medical History Medical History Anxiety Asthma Chlamydia Family History Family History (Updated 01/31/23 @ 11:50 by NICOLE Vang) Father Hypertension Grandparent Diabetes mellitus maternal grandfather Social History Social History (Updated 01/31/23 @ 13:42 by NICOLE Vang) Smoking status: Never smoker Second hand tobacco smoke exposure: No Alcohol intake: never Substance use: never Substance use type: does not use Lack of Transportation: No Lack of Food: Never True Current Housing: Decline to Answer Concerned About Future Housing: No Difficulty Paying Gas/Electric Bills: No Difficulty Paying for Meds: No Currently Unemployed: YES Difficulty w/ Childcare or Family Care: Decline to Answer Living arrangements: with friend(s) Occupation/Education: unemployed Gender identity (if verbalized by the patient): Female Sexual Orientation (if Verbalized by the Patient): Straight or Heterosexual Comments At time of signature, agree with nursing past medical, surgical, social and family history. There is no relevant family history pertinent to the presenting complaint Exam Narrative: GENERAL: Well-appearing, well-nourished, and in no acute distress. HEAD: Normocephalic, atraumatic. EYES: PERRLA, sclera clear ENT: Nares clear, turbinates pink, no rhinorrhea or epistaxis. Mucous membranes moist. TM pearly whitney with sharp light reflex bilaterally; no tragal tenderness. Oropharynx without erythema or lesions. Tonsils not enlarged and without exudate. Tooth number 21 is broken with DKA, mild left lower jaw swelling and tenderness noted NECK: Supple. No lymphadenopathy. CHEST: No respiratory distress. Speaks in full sentences. HEART: Regular rate and rhythm. SKIN: Warm, dry, no visible rash. NEURO: Alert and oriented x3. PSYCH: Normal mood and affect Course Course Emergency Course: Patient is aware of diagnosis, understands and agrees to treatment plan. Anticipatory guidance given. Patient agrees to follow-up as directed and is aware of reasons to seek care at the emergency department. Portions of this record may have been created with voice recognition software Level of Care: Express Care Visit Vital Signs Vital signs: Vital Signs Temperature 98.9 F 02/15/23 10:51 Pulse Rate 83 02/15/23 10:51 Respiratory Rate 16 02/15/23 10:51 Blood Pressure 127/85 02/15/23 10:51 Pulse Oximetry 99 02/15/23 10:51 Oxygen Delivery Room Air 02/15/23 10:51 Temperature 98.9 F 02/15/23 10:51 Pulse Rate 83 02/15/23 10:51 Respiratory Rate 16 02/15
== END 2023-02-15 11:47 | disposition home or self-care (01) ==
PROVIDERS: Emergency Provider Nurse Practitioner
DX: K08.89 Other specified disorders of teeth and supporting structures (principal); J45.909 Unspecified asthma, uncomplicated
CPT/HCPCS: 99213; G0463

== ENCOUNTER 2023-04-06 12:07 | Emergency (ER) | payer OTHER, SELFPAY ==
[2023-04-06 12:07] VITALS: BP 133/77; PULSE 92; RESP 18; TEMP 36.3; O2SAT 100
[2023-04-06 15:44] VITALS: BP 133/70; PULSE 92; RESP 18; O2SAT 100
[2023-04-06 16:33] VITALS: BP 113/71; PULSE 62; RESP 16; O2SAT 100
[2023-04-06 16:40] LABS: Basophils Percent Auto 0.3 % (0.2-1.2); Eosinophils Absolute Auto 0.1 K/mm3 (0-0.3); Eosinophils Percent Auto 0.6 % (0-4.4); Hematocrit 40.8 % (37.0-47.0); Hemoglobin 13.6 g/dL (12.0-15.0); Immature Granulocyte Absolute 0.03 K/mm3 (0.00-0.031); Immature Granulocyte Percent A 0.3 % (0-0.5); Lymphocytes Absolute Auto 1.93 K/mm3 (0.9-3.2); Lymphocytes Percent Auto 22.1 % (18.3-44.2); Mean Corpuscular HGB Conc 33.3 g/dl (32-36); Mean Platelet Volume 10.6 fl (7.4-10.4); Monocytes Absolute Auto 0.5 K/mm3 (0.1-0.6); Monocytes Percent Auto 5.7 % (2.6-8.5); Neutrophils Absolute Auto 6.2 K/mm3 (1.3-6.7); Platelet Count Result 243 k/mm3 (150-375); Red Blood Count 4.69 M/mm3 (4.2-5.4); Red Cell Distribution Width 13.6 % (11.5-14.5); White Blood Count 8.7 K/mm3 (4.5-10.0)
[2023-04-06] MEDS: diphenhydrAMINE HCl INJ 50 MG/ML VIAL 25 MG IV PUSH (16:45)
[2023-04-06] MEDS: SODIUM CHLORIDE 0.9% IV 1,000 ML 999 ML IV CONT ×2 (16:45→17:38)
[2023-04-06 16:46] LABS: Appearance Urine Turbid (Clear); Bacteria Urine 4+ /hpf; Bilirubin Urine 1+ (Negative); Blood Urine Negative (Negative); Color Urine Dark Yellow (Yellow); Glucose Urine UA Negative (Negative); Ketones Urine 4+ mg/dL (Negative); Leukocyte Esterase Ur 3+ LEU/UL (Negative); Nitrate Urine Negative (Negative); Non Pathogenic Casts 0-2; Protein Urine Trace mg/dL (Negative); RBC Urine 0-2 /hpf (0-2); Specific Grav Ur 1.028 (1.001-1.035); Squamous Epithelial Cell Urine Many /hpf (Few); WBC Urine 21-50 /hpf; pH Urine 5.5 (5.0-9.0)
[2023-04-06] MEDS: METOCLOPRAMIDE HCL INJ 10 MG/2 ML VIAL IV PUSH (16:46)
[2023-04-06 16:51] LABS: Alanine Aminotransferase 21 U/L (6-35); Alkaline Phosphatase 63 U/L (38-126); Anion Gap 11 mmol/L (8-16); Aspartate Amino Transferase 26 U/L (14-36); Bilirubin,Total 0.5 mg/dL (0.2-1.3); Blood Urea Nitrogen 7 mg/dL (7-17); Calcium 9.3 mg/dL (8.4-10.2); Carbon Dioxide 20 mmol/L (22-30); Chloride 104 mmol/L (98-107); Estimated CRCL calculation 130 ml/min; Estimated Glomerular Filt Rate > 60; Glucose 88 mg/dL (65-110); Lipase 85 U/L (23-300); Potassium 4.5 mmol/L (3.4-5.0); Sodium 135 mmol/L (137-145)
[2023-04-06 17:01] VITALS: BP 113/63; PULSE 59; RESP 17; O2SAT 100
[2023-04-06 17:01] LABS: Add Urine Microscopic? YES
--- NOTE | 2023-04-06 17:02 | ED.NAVMDI ---
HPI - Nausea/Vomiting/Diarrhea General Chief complaint: Nausea/Vomiting/Diarrhea Stated complaint: dehydration Time Seen by Provider: 04/06/23 16:21 Source: patient Mode of arrival: ambulatory Limitations: no limitations History of Present Illness HPI Narrative: This is a 22-year-old female that presents to the emergency department for nausea and vomiting. Worsening over the last couple of days. Patient is currently 15 weeks . Her OB is Dr. Cooper. She presented for evaluation as she was concerned she was getting dehydrated. Denies fevers, cough, congestion, sore throat, abdominal pain, diarrhea, vaginal bleeding, or pelvic cramping. Related Data Allergies Allergy/AdvReac Type Severity Reaction Status Date / Time No Known Allergies Allergy Verified 03/29/23 08:42 Review of Systems Review of Systems: CONSTITUTIONAL: Denies fever ENT: Denies rhinorrhea, congestion, sore throat RESPIRATORY: Denies cough GASTROINTESTINAL: Reports nausea and vomiting. Denies abdominal pain, or diarrhea. GENITOURINARY: Denies dysuria All systems reviewed & are unremarkable except as noted in HPI and below PMFSH Past Medical History Medical History Anxiety Asthma Chlamydia Family History Family History Father Hypertension Grandparent Diabetes mellitus maternal grandfather Social History Social History Smoking status: Never smoker Second hand tobacco smoke exposure: No Alcohol intake: never Substance use: never Substance use type: does not use Lack of Transportation: No Lack of Food: Never True Current Housing: Decline to Answer Concerned About Future Housing: No Difficulty Paying Gas/Electric Bills: No Difficulty Paying for Meds: No Currently Unemployed: YES Difficulty w/ Childcare or Family Care: Decline to Answer Living arrangements: with friend(s) Occupation/Education: unemployed Gender identity (if verbalized by the patient): Female Sexual Orientation (if Verbalized by the Patient): Straight or Heterosexual Exam Narrative: GENERAL: Well-appearing, well-nourished, and in no acute distress. HEAD: Normocephalic, atraumatic. EYES: EOMI. CHEST: Clear to auscultation. No respiratory distress. No wheezes rales or rhonchi HEART: Regular rate and rhythm. No murmur heard. Normal peripheral pulses. ABDOMEN: Soft, nontender, nondistended, normal active bowel sounds. EXTREMITIES: Normal range of motion. No edema. SKIN: Warm, dry, no rash. NEURO: No focal deficits. Alert and oriented x3. PSYCH: Normal mood and affect Course Course Emergency Course: Patient updated on her workup. Feels much better. Able to tolerate PO challenge Consultations Consultation #1: Spoke with Dr. Mcghee about patient and workup who agrees with plan of care. Date: 04/06/23 Vital Signs Vital signs: Vital Signs Temperature 97.3 F L 04/06/23 12:07 Pulse Rate 92 04/06/23 12:07 Respiratory Rate 18 04/06/23 12:07 Blood Pressure 133/77 04/06/23 12:07 Pulse Oximetry 100 04/06/23 12:07 Oxygen Delivery Room Air 04/06/23 12:07 Temperature 97.3 F L 04/06/23 12:07 Pulse Rate 59 L 04/06/23 17:01 Respiratory Rate 17 04/06/23 17:01 Blood Pressure 113/63 04/06/23 17:01 Pulse Oximetry 100 04/06/23 17:01 Oxygen Delivery Room Air 04/06/23 12:07 Procedures Other Procedure Procedure 1: Other Procedure: Bedside ultrasound showed active movement and cardiac motion MDM - Nausea/Vomiting/Diarrhea MDM Narrative Medical decision making narrative: Patient presents to the ER for nausea and vomiting in . She is afebrile and nontoxic appearing. Her vitals are stable. CBC and metabolic panel without concerning findings. UA with evidence of dehydration. Also shows 21-50 WBCs. As w
== END 2023-04-06 18:43 | disposition home or self-care (01) ==
PROVIDERS: Emergency Provider Physician Assistant
DX: O26.892 Other specified pregnancy related conditions, second trimester (principal); R82.71 Bacteriuria; R11.2 Nausea with vomiting, unspecified; Z3A.15 15 weeks gestation of pregnancy
CPT/HCPCS: 36415; 80053; 81001; 83690; 85025; 87086; 96361; 96374; 96375; 99284; J1200; J2765; J7030

== ENCOUNTER 2023-04-09 13:58 | Emergency (ER) | payer OTHER, SELFPAY ==
[2023-04-09 14:33] VITALS: BP 111/62; PULSE 84; RESP 18; TEMP 36.7; O2SAT 100
[2023-04-09] MEDS: LACTATED RINGERS 1,000 ML 999 ML IV CONT ×2 (16:23→18:33)
[2023-04-09 16:30] LABS: Basophils Percent Auto 0.3 % (0.2-1.2); Eosinophils Absolute Auto 0.1 K/mm3 (0-0.3); Eosinophils Percent Auto 0.7 % (0-4.4); Hematocrit 41.3 % (37.0-47.0); Hemoglobin 13.6 g/dL (12.0-15.0); Immature Granulocyte Absolute 0.03 K/mm3 (0.00-0.031); Immature Granulocyte Percent A 0.3 % (0-0.5); Lymphocytes Absolute Auto 2.03 K/mm3 (0.9-3.2); Lymphocytes Percent Auto 22.4 % (18.3-44.2); Mean Corpuscular HGB Conc 32.9 g/dl (32-36); Mean Corpuscular Hemoglobin 29.1 pg (26-34); Mean Corpuscular Volume 88.4 fl (80-100); Mean Platelet Volume 10.9 fl (7.4-10.4); Monocytes Absolute Auto 0.5 K/mm3 (0.1-0.6); Neutrophils Absolute Auto 6.5 K/mm3 (1.3-6.7); Neutrophils Percent Auto 71.3 % (45.5-73.1); Platelet Count Result 238 k/mm3 (150-375); Red Blood Count 4.67 M/mm3 (4.2-5.4); Red Cell Distribution Width 13.6 % (11.5-14.5); White Blood Count 9.1 K/mm3 (4.5-10.0)
[2023-04-09 16:39] LABS: Alanine Aminotransferase 30 U/L (6-35); Albumin Level 3.9 g/dL (3.5-5.1); Alkaline Phosphatase 53 U/L (38-126); Anion Gap 7 mmol/L (8-16); Aspartate Amino Transferase 31 U/L (14-36); Bilirubin,Total 0.4 mg/dL (0.2-1.3); Blood Urea Nitrogen 6 mg/dL (7-17); Calcium 9.5 mg/dL (8.4-10.2); Carbon Dioxide 24 mmol/L (22-30); Chloride 105 mmol/L (98-107); Estimated Glomerular Filt Rate > 60; Glucose 114 mg/dL (65-110); Potassium 4.2 mmol/L (3.4-5.0); Sodium 136 mmol/L (137-145)
[2023-04-09 16:52] LABS: Appearance Urine Cloudy (Clear); Bacteria Urine 4+ /hpf; Bilirubin Urine Negative (Negative); Blood Urine Negative (Negative); Color Urine Dark Yellow (Yellow); Glucose Urine UA Negative (Negative); Ketones Urine 3+ mg/dL (Negative); Leukocyte Esterase Ur 3+ LEU/UL (Negative); Need Manual Microscopic Reviewed; Nitrate Urine Negative (Negative); Non Pathogenic Casts 0-2; Protein Urine 1+ mg/dL (Negative); Specific Grav Ur 1.028 (1.001-1.035); Squamous Epithelial Cell Urine Many /hpf (Few); WBC Urine 21-50 /hpf
[2023-04-09 16:58] LABS: Add Urine Microscopic? YES
--- NOTE | 2023-04-09 17:49 | ED.GENADULT ---
HPI - General Adult General Chief complaint: Unspecified Stated complaint: FLUIDS Time Seen by Provider: 04/09/23 16:07 History of Present Illness HPI narrative: Patient is a 22-year-old female at approximately 15 weeks gestation presenting for fluids. Patient states that she has struggled with severe nausea and vomiting in this . States that it was even worse in her 1st . She was here few days ago and treated with fluids and diagnosed with bacteriuria. She was started on Macrobid. States that she has actually been keeping this down pretty well until today. States that she vomited up this morning's dose. She called her OB today who advised that she come in for more fluids. She denies any pain. No vaginal bleeding. Related Data Allergies Allergy/AdvReac Type Severity Reaction Status Date / Time No Known Allergies Allergy Verified 03/29/23 08:42 Review of Systems Review of Systems: All systems reviewed & are unremarkable except as noted in HPI and below PMFSH Past Medical History Medical History Anxiety Asthma Chlamydia Family History Family History Father Hypertension Grandparent Diabetes mellitus maternal grandfather Social History Social History Smoking status: Never smoker Second hand tobacco smoke exposure: No Alcohol intake: never Substance use: never Substance use type: does not use Lack of Transportation: No Lack of Food: Never True Current Housing: Decline to Answer Concerned About Future Housing: No Difficulty Paying Gas/Electric Bills: No Difficulty Paying for Meds: No Currently Unemployed: YES Difficulty w/ Childcare or Family Care: Decline to Answer Living arrangements: with friend(s) Occupation/Education: unemployed Gender identity (if verbalized by the patient): Female Sexual Orientation (if Verbalized by the Patient): Straight or Heterosexual Exam Narrative: GENERAL: Well-appearing, in no acute distress, pleasant cooperative HEAD: Normocephalic, atraumatic. EYES: PERRLA and EOMI. ENT: Mucous membranes moist. NECK: Supple. CHEST: No respiratory distress. HEART: Regular rate and rhythm ABDOMEN: Soft, nontender, nondistended EXTREMITIES: No edema. SKIN: Warm, dry, no rash. NEURO: No focal deficits. Alert and oriented x3. PSYCH: Normal mood and affect. Course Vital Signs Vital signs: Vital Signs Temperature 98.1 F 04/09/23 14:33 Pulse Rate 84 04/09/23 14:33 Respiratory Rate 18 04/09/23 14:33 Blood Pressure 111/62 04/09/23 14:33 Pulse Oximetry 100 04/09/23 14:33 Oxygen Delivery Room Air 04/09/23 14:33 Temperature 98.1 F 04/09/23 14:33 Pulse Rate 76 04/09/23 20:35 Respiratory Rate 16 04/09/23 20:35 Blood Pressure 126/72 04/09/23 20:35 Pulse Oximetry 100 04/09/23 20:35 Oxygen Delivery Room Air 04/09/23 14:33 Medical Decision Making MDM Narrative Medical decision making narrative: 22-year-old female presenting with nausea vomiting in the setting of . Vitals are stable. Exam is unremarkable. Blood work is unremarkable. UA is contaminated but still concerning for bacteriuria. Patient still has Macrobid, encouraged her to continue taking it. Patient received 2 L of fluids, IV Zofran and she was able to tolerate p.o. intake. Feel she is safe for outpatient management. She she needs to follow-up closely with her OB. Will send in for more Zofran. Appropriate return precautions given. Discharged in stable condition. Differential Diagnosis Differential Diagnosis: UTI, PABLITO, hyperemesis gravidarum Medical Records Medical records reviewed: Yes I reviewed the external patient's medical records. Vital Signs Vital Signs: Vital Signs Temperature 98.1 F 04/09/23 14:33 Pulse Ra
[2023-04-09] MEDS: NITROFURANTOIN MONOHYD MACROCR 100 MG CAP PO (18:14)
[2023-04-09] MEDS: ONDANSETRON INJ 4 MG/2 ML VIAL IV PUSH (18:14)
[2023-04-09 20:35] VITALS: BP 126/72; PULSE 76; RESP 16; O2SAT 100
== END 2023-04-09 20:37 | disposition home or self-care (01) ==
PROVIDERS: Emergency Medicine; Emergency Provider Emergency Medicine
DX: O21.0 Mild hyperemesis gravidarum (principal); O26.892 Other specified pregnancy related conditions, second trimester; R82.71 Bacteriuria; O99.512 Diseases of the respiratory system complicating pregnancy, second trimester; J45.909 Unspecified asthma, uncomplicated; Z3A.15 15 weeks gestation of pregnancy
CPT/HCPCS: 36415; 80053; 81001; 85025; 87086; 96361; 96374; 99284; A9270; J2405; J7120

== ENCOUNTER 2023-04-19 18:11 | Emergency (ER) | payer OTHER, SELFPAY ==
[2023-04-19 18:15] VITALS: BP 130/62; PULSE 93; RESP 20; TEMP 36.4; O2SAT 100
--- NOTE | 2023-04-19 18:25 | ED.GENADULT ---
HPI - General Adult General Chief complaint: Nausea/Vomiting/Diarrhea <Frank Bray PA-C - Last Filed: 04/19/23 18:27> Stated complaint: dehydration <Frank Bray PA-C - Last Filed: 04/19/23 18:27> Time Seen by Provider: 04/19/23 18:25 <Frank Bray PA-C - Last Filed: 04/19/23 18:27> Focused HPI: This is a 22-year-old female who is approximately 17 weeks presenting for chief complaint of acute onset nausea vomiting beginning earlier today. Reports over 10 episodes of emesis. Denies GI bleeding symptoms. Reports recent UTI diagnosed in this ED and has been taking her antibiotics as prescribed without problems for 1 week. Endorses a couple episodes of loose stools. Denies fevers, chills, abdominal pain or vaginal bleeding. GENERAL: Well-appearing, well-nourished, and in no acute distress. HEAD: Normocephalic, atraumatic. CHEST: Clear to auscultation. No respiratory distress. HEART: Regular rate and rhythm. NEURO: Alert and oriented x3. Patient screened in triage and initial orders placed. Additional care and disposition to be based upon diagnostic testing and treatment. <Frank Bray PA-C - Last Filed: 04/19/23 18:27> History of Present Illness HPI narrative: patient 22-year-old female presents emergency department chief complaint of nausea and vomiting. Patient reports that she has had several episodes of vomiting but reports that the vomiting has stopped since she has arrived in the emergency department. Patient reports she is approximately 17 weeks has no vaginal bleeding no vaginal discharge denies abdominal pain. <Eben Medrano MD - Last Filed: 04/19/23 21:14> Related Data Allergies/adverse reactions: Allergies Allergy/AdvReac Type Severity Reaction Status Date / Time No Known Allergies Allergy Verified 04/19/23 19:52 <Frank Bray PA-C - Last Filed: 04/19/23 18:27> Review of Systems Review of Systems: A 10 system review of systems was completed on the patient and is negative except for what is stated in the HPI. Nursing and ancillary documentation was reviewed. <Eben Medrano MD - Last Filed: 04/19/23 21:14> [facility] Past Medical History Medical History: Medical History Anxiety Asthma Chlamydia <Frank Bray PA-C - Last Filed: 04/19/23 18:27> Family History Family History: Family History Father Hypertension Grandparent Diabetes mellitus maternal grandfather <Frank Bray PA-C - Last Filed: 04/19/23 18:27> Social History Social History: Social History Smoking status: Never smoker Second hand tobacco smoke exposure: No Alcohol intake: never Substance use: never Substance use type: does not use Lack of Transportation: No Lack of Food: Never True Current Housing: Decline to Answer Concerned About Future Housing: No Difficulty Paying Gas/Electric Bills: No Difficulty Paying for Meds: No Currently Unemployed: YES Difficulty w/ Childcare or Family Care: Decline to Answer Living arrangements: with friend(s) Occupation/Education: unemployed Gender identity (if verbalized by the patient): Female Sexual Orientation (if Verbalized by the Patient): Straight or Heterosexual <Frank Bray PA-C - Last Filed: 04/19/23 18:27> Exam Narrative: GENERAL: Well-appearing, well-nourished, and in no acute distress. HEAD: Normocephalic, atraumatic. EYES: PERRLA and EOMI. ENT: Nares clear, no rhinorrhea or epistaxis. Mucous membranes moist. NECK: Supple. CHEST: Clear to auscultation. No respiratory distress. HEART: Regular rate and rhythm. No murmur heard. Normal peripheral pulses. ABDOMEN: Soft, nontender, nondistended, normal active bowel sounds. EXTREMITIES: Normal range of
[2023-04-19 18:49] LABS: Basophils Percent Auto 0.2 % (0.2-1.2); Eosinophils Absolute Auto 0.1 K/mm3 (0-0.3); Eosinophils Percent Auto 0.5 % (0-4.4); Hematocrit 39.4 % (37.0-47.0); Immature Granulocyte Absolute 0.02 K/mm3 (0.00-0.031); Immature Granulocyte Percent A 0.2 % (0-0.5); Lymphocytes Absolute Auto 1.79 K/mm3 (0.9-3.2); Lymphocytes Percent Auto 19.2 % (18.3-44.2); Mean Corpuscular Volume 87.9 fl (80-100); Mean Platelet Volume 10.5 fl (7.4-10.4); Monocytes Absolute Auto 0.4 K/mm3 (0.1-0.6); Monocytes Percent Auto 4.3 % (2.6-8.5); Neutrophils Percent Auto 75.6 % (45.5-73.1); Platelet Count Result 227 k/mm3 (150-375); Red Blood Count 4.48 M/mm3 (4.2-5.4); Red Cell Distribution Width 13.8 % (11.5-14.5); White Blood Count 9.3 K/mm3 (4.5-10.0)
[2023-04-19 19:02] LABS: Alanine Aminotransferase 21 U/L (6-35); Albumin Level 3.6 g/dL (3.5-5.1); Alkaline Phosphatase 62 U/L (38-126); Anion Gap 7 mmol/L (8-16); Aspartate Amino Transferase 25 U/L (14-36); Bilirubin,Total 0.5 mg/dL (0.2-1.3); Blood Urea Nitrogen 5 mg/dL (7-17); Calcium 9.2 mg/dL (8.4-10.2); Carbon Dioxide 21 mmol/L (22-30); Chloride 106 mmol/L (98-107); Estimated CRCL calculation 152 ml/min; Estimated Glomerular Filt Rate > 60; Glucose 87 mg/dL (65-110); Lipase 73 U/L (23-300); Potassium 4.1 mmol/L (3.4-5.0); Sodium 134 mmol/L (137-145)
[2023-04-19 19:11] LABS: Appearance Urine Cloudy (Clear); Bacteria Urine 4+ /hpf; Bilirubin Urine Negative (Negative); Blood Urine Negative (Negative); Color Urine Yellow (Yellow); Glucose Urine UA Negative (Negative); Ketones Urine 4+ mg/dL (Negative); Leukocyte Esterase Ur 3+ LEU/UL (Negative); Nitrate Urine Negative (Negative); Non Pathogenic Casts 0-2; Protein Urine Trace mg/dL (Negative); RBC Urine 0-2 /hpf (0-2); Specific Grav Ur 1.023 (1.001-1.035); Squamous Epithelial Cell Urine Moderate /hpf (Few); WBC Urine 21-50 /hpf
[2023-04-19 19:16] LABS: Add Urine Microscopic? YES
[2023-04-19 19:30] LABS: Influenza A QL RT-PCR Negative (Negative); Influenza B QL RT-PCR Negative (Negative); RSV RNA, RT-PCR Negative (Negative); SARS-CoV-2 RNA PCR Negative (Negative)
[2023-04-19 19:46] VITALS: BP 129/70; PULSE 93; RESP 18; O2SAT 100
[2023-04-19] MEDS: SODIUM CHLORIDE 0.9% IV 1,000 ML 999 ML IV CONT (20:34)
[2023-04-19] MEDS: METOCLOPRAMIDE HCL INJ 10 MG/2 ML VIAL IV PUSH (20:34)
[2023-04-19 21:24] VITALS: BP 111/79; PULSE 99; RESP 17; O2SAT 100
== END 2023-04-19 21:26 | disposition home or self-care (01) ==
PROVIDERS: Emergency Medicine; Physician Assistant; Emergency Provider Emergency Medicine
DX: N39.0 Urinary tract infection, site not specified (principal); R11.2 Nausea with vomiting, unspecified; Z20.822 Contact with and (suspected) exposure to COVID-19; F41.9 Anxiety disorder, unspecified; J45.909 Unspecified asthma, uncomplicated
CPT/HCPCS: 36415; 80053; 81001; 81025; 83690; 85025; 87086; 87637; 96361; 96374; 99284; J2765; J7030

== ENCOUNTER 2023-05-03 14:57 | Emergency (ER) | payer OTHER, SELFPAY ==
[2023-05-03 15:01] VITALS: PULSE 88; RESP 16; TEMP 36.8; O2SAT 100
--- NOTE | 2023-05-03 17:39 | PC.NURSE ---
190 BPM heart tones
--- NOTE | 2023-05-03 17:39 | ED.DENTAL ---
HPI - Dental/Oral General Chief complaint: Dental/Oral Stated complaint: dental pain, 19 weeks preg Time Seen by Provider: 05/03/23 17:00 Focused HPI: This is a 22 year old female that presents to the ER for dental pain. Ongoing over the last couple of days. Reports a fractured tooth. She is currently 19 weeks . No related concerns. Has had routine care. Her OB is Dr. Cooper. GENERAL: Well-appearing, well-nourished, and in no acute distress. HEAD: Normocephalic, atraumatic. CHEST: Clear to auscultation. ?No respiratory distress. HEART: Regular rate and rhythm.? NEURO: ?Alert and oriented x3. Patient screened in triage and initial orders placed.? ?Additional care and disposition to be based upon?diagnostic testing and treatment. Source: patient Mode of arrival: ambulatory Limitations: no limitations History of Present Illness MD Complaint: tooth pain Location: Tooth # (28) Related Data Allergies Allergy/AdvReac Type Severity Reaction Status Date / Time No Known Allergies Allergy Verified 04/26/23 09:15 Review of Systems Review of Systems: All systems reviewed & are unremarkable except as noted in HPI and below Constitutional: Constitutional: Denies fever(s) ENT: Denies dysphagia Comments: Reports dentalgia Respiratory: Respiratory: Denies dyspnea PMFSH Past Medical History Medical History Anxiety Asthma Chlamydia Family History Family History Father Hypertension Grandparent Diabetes mellitus maternal grandfather Social History Social History Smoking status: Never smoker Second hand tobacco smoke exposure: No Alcohol intake: never Substance use: never Substance use type: does not use Lack of Transportation: No Lack of Food: Never True Current Housing: Decline to Answer Concerned About Future Housing: No Difficulty Paying Gas/Electric Bills: No Difficulty Paying for Meds: No Currently Unemployed: YES Difficulty w/ Childcare or Family Care: Decline to Answer Living arrangements: with friend(s) Occupation/Education: unemployed Gender identity (if verbalized by the patient): Female Sexual Orientation (if Verbalized by the Patient): Straight or Heterosexual Exam Const: General: healthy appearing and no acute distress Nutritional Appearance: well nourished HENMT: Throat: posterior oropharynx normal Other: Tooth # 28 is fractured, tender to palpation. No surrounding erythema or fluctuance to suggest abscess. No trismus Course Course Emergency Course: Patient agrees with plan of care Vital Signs Vital signs: Vital Signs Temperature 98.3 F 05/03/23 15:01 Pulse Rate 88 05/03/23 15:01 Respiratory Rate 16 05/03/23 15:01 Pulse Oximetry 100 05/03/23 15:01 Oxygen Delivery Room Air 05/03/23 15:01 Temperature 98 F 05/03/23 17:50 Pulse Rate 100 05/03/23 17:50 Respiratory Rate 20 05/03/23 17:50 Blood Pressure 127/79 05/03/23 17:50 Pulse Oximetry 100 05/03/23 17:50 Oxygen Delivery Room Air 05/03/23 15:01 MDM - Dental/Oral MDM Narrative Medical decision making narrative: This is a 22 year old female that presents to the ER for toothache. She is afebrile and nontoxic appearing. Her vitals are stable. No evidence for abscess on exam. Patient will be started on oral antibiotics and was instructed to follow up with a dentist. She was given warnings to return to the ER Differential Diagnosis Differential diagnosis: Likely toothache, dental abscess and fracture of tooth Critical Care Time Critical Care Time Critical Care Time: No Discharge Plan Discharge Clinical Impression: Toothache Patient Disposition: Home, Self-Care Condition: Stable Instructions: Antibiotic Form, Toothache (ED) Additional Instructions: Retu
[2023-05-03 17:50] VITALS: BP 127/79; PULSE 100; RESP 20; TEMP 36.6; O2SAT 100
== END 2023-05-03 17:51 | disposition home or self-care (01) ==
LOC: ANHED 17:40
PROVIDERS: Emergency Provider Physician Assistant
DX: O26.892 Other specified pregnancy related conditions, second trimester (principal); K08.89 Other specified disorders of teeth and supporting structures; Z3A.19 19 weeks gestation of pregnancy
CPT/HCPCS: 99283

== ENCOUNTER 2023-05-17 08:03 | Outpatient (CLI) | payer OTHER, SELFPAY ==
--- NOTE | ~2023-05-17 | US_ITS ---
EXAMINATION: US OB /maternal detail DATE: 05/17/2023 09:46 INDICATION: Second trimester anatomic survey TECHNIQUE: Real-time ultrasound of the pelvis was performed. COMPARISON: None. FINDINGS: There is a single living fetus in transverse lie. The placenta is anterior. heart rate is 146 beats per minute (bpm). cardiac activity and movement are noted. The amniotic fluid inde x is subjectively normal. The heart, spine, and intracranial structures are not well demonstrated due to position. The fo llowing anatomy was identified as normal: 3 vessel cord cord insertion kidneys urinary bladder stomach diaphragm The following biometric data were obtained: Biparietal diameter (BPD): 4.9 cm; head circumference (HC): 19.7 cm; abdominal circumference (AC): 16 .5 cm; femur length (FL): 3.7 cm. These measurements are concordant. Estimated weight is 444 g +/- 66 g, which correlates with the 75th percentile when 09/26/2023 is used as estimated date of delivery. As single measurements, these parameters are each equal to the following estimated gestational ages w ith ranges of +/- 2 standard deviations: BPD: 20 weeks 6 days +/- 1 weeks 5 days. HC: 21 weeks 6 days +/- 1 weeks 3 days. AC: 21 weeks 4 days +/- 2 weeks 0 days. FL: 21 weeks 6 days +/- 1 weeks 6 days. estimated gestational age based solely on measurements from this exam is 21 weeks 4 days +/- 1 weeks 4 days. IMPRESSION: 1. Single living fetus in transverse lie. 2. Estimated weight is 444 g +/- 66 g, which correlates with the 75th percentile when 09/26/2023 is used as estimated date of delivery. 3. Incomplete anatomic survey. Reviewed, dictated and finalized at location L. ING MACHINE HOST/HOSTESS IMPRESSION: 1. Single living fetus in transverse lie. 2. Estimated weight is 444 g +/- 66 g, which correlates with the 75th per centile when 09/26/2023 is used as estimated date of delivery. 3. Incomplete anatomic survey.
== END 2023-05-17 08:04 | disposition home or self-care (01) ==
PROVIDERS: Visit Provider Obstetrics & Gynecology
DX: Z34.90 Encounter for supervision of normal pregnancy, unspecified, unspecified trimester (principal)
CPT/HCPCS: 76805

== ENCOUNTER 2023-05-18 05:31 | Emergency (ER) | payer OTHER, SELFPAY ==
[2023-05-18 05:32] VITALS: BP 120/76; PULSE 100; RESP 16; TEMP 36.6; O2SAT 100
--- NOTE | 2023-05-18 07:07 | ED.DENTAL ---
HPI - Dental/Oral General Chief complaint: Dental/Oral Stated complaint: mouth pain Time Seen by Provider: 05/18/23 06:54 History of Present Illness HPI Narrative: Patient is a 22-year-old female, approximately 21 weeks , here with left upper sided dental pain. She states that she believes her wisdom teeth have begun growing in on the upper side on the left causing fractures in the teeth that it is pushing up against. She notes that the pain seemed to worsen over lost 2 days. It involves her left face and radiates on her left upper jaw down into her neck and into her left ear. She has been attempting to take Tylenol at home but keeps vomiting up the Tylenol due to her pain. She last took a dose around 230 this morning but threw up shortly after. She denies any fever, chills, difficulty breathing or difficulty swallowing her secretions. She does not currently have a dentist, does not currently have dental insurance. She was here a few weeks ago for dental pain on the right side of her jaw, this resolved with antibiotics and she is feeling quite better at this time in terms of that tooth. Related Data Allergies Allergy/AdvReac Type Severity Reaction Status Date / Time No Known Allergies Allergy Verified 04/26/23 09:15 Review of Systems Review of Systems: All systems reviewed & are unremarkable except as noted in HPI and below PMFSH Past Medical History Medical History Anxiety Asthma Chlamydia Family History Family History Father Hypertension Grandparent Diabetes mellitus maternal grandfather Social History Social History Smoking status: Never smoker Second hand tobacco smoke exposure: No Alcohol intake: never Substance use: never Substance use type: does not use Lack of Transportation: No Lack of Food: Never True Current Housing: Decline to Answer Concerned About Future Housing: No Difficulty Paying Gas/Electric Bills: No Difficulty Paying for Meds: No Currently Unemployed: YES Difficulty w/ Childcare or Family Care: Decline to Answer Living arrangements: with friend(s) Occupation/Education: unemployed Gender identity (if verbalized by the patient): Female Sexual Orientation (if Verbalized by the Patient): Straight or Heterosexual Exam Narrative: GENERAL: Well-appearing, well-nourished, and in no acute distress. HEAD: Normocephalic, atraumatic. EYES: PERRLA and EOMI. ENT: Nares clear. Mucous membranes moist. Poor dentition with multiple dental caries and cracked teeth. Tenderness over tooth 15 and 16, no obvious dental abscess, no overlying facial swelling. No or pharyngeal swelling, uvula midline. No fullness beneath the tongue. No trismus. NECK: Supple. CHEST: Clear to auscultation. No respiratory distress. HEART: Regular rate and rhythm. Normal peripheral pulses. ABDOMEN: Soft, nontender, nondistended. Gravid abdomen. EXTREMITIES: Normal range of motion. SKIN: Warm, dry, no rash. NEURO: No focal deficits. Alert and oriented x3. Course Course Emergency Course: Chart review performed. Patient here with dental pain. Triage vitals normal. It appears she was seen here for dental pain on 05/03/23 had a fractured tooth 28, she was 19 weeks at that time, follows with Dr. Cooper. She was started on amoxicillin and tylenol. Advised follow up with dentist and OB. Patient seen evaluated, nontoxic appearing. She has subtle dental fractures with suspected infection and tooth 15 and 16 likely due to her incoming wisdom teeth. No obvious drainable abscess. Will give dose of Zofran and then provide her with antibiotics and Tylenol. Given the fact that she is we do have limited options for pain control. Patient agreeable to plan. Patient tolerating p.o., was able to take her Tylenol and anti
[2023-05-18] MEDS: ONDANSETRON HCL ODT 4 MG TABLET PO (08:23)
[2023-05-18] MEDS: ACETAMINOPHEN 500 MG TABLET 1000 MG PO (08:23)
[2023-05-18] MEDS: PENICILLIN V POTASSIUM 250 MG TABLET 500 MG PO (10:33)
[2023-05-18 10:37] VITALS: BP 100/60; PULSE 100; RESP 18; O2SAT 100
== END 2023-05-18 10:38 | disposition home or self-care (01) ==
PROVIDERS: Emergency Provider Student in an Organized Health Care Education/Training Program
DX: K02.9 Dental caries, unspecified (principal); K08.89 Other specified disorders of teeth and supporting structures
CPT/HCPCS: 99283; A9270

== ENCOUNTER 2023-06-07 08:56 | Outpatient (CLI) | payer OTHER, SELFPAY ==
--- NOTE | ~2023-06-07 | US_ITS ---
EXAMINATION: US OB follow up DATE: 06/07/2023 14:53 INDICATION: survey. TECHNIQUE: Real-time transabdominal obstetric ultrasound. FINDINGS: 05/17/2023 There is a single living fetus in vertex presentation. The placenta is anterior without placenta pre via. cardiac activity and movement is noted with a heart rate of 159 beats per minute. T he amniotic fluid volume is subjectively normal. The following biometric data were obtained: BPD: 57mm corresponds to gestational age 23 weeks 2 days. Head circumference: 219mm corresponds to gestational age 24 weeks 0 days. Abdominal circumference: 196mm corresponds to gestational age 24 weeks 0 days. Femur length: 47mm corresponds to gestational age 25 weeks 5 days. Estimated weight: 728grams +/- 109grams 68.8%.] Limited survey demonstrates normal intracranial structures, spine and four-chamber heart. IMPRESSION: 1. Single living intrauterine in vertex presentation with an estimated gestational age of 24 weeks 4 days by inititial ultrasound. Appropriate interval growth. 2. Normal placenta. 3: Normal limited survey. Reviewed, dictated and finalized at location B. IMPRESSION: 1. Single living intrauterine in vertex presentation with an estimat ed gestational age of 24 weeks 4 days by inititial ultrasound. Appropriate int erval growth. 2. Normal placenta. 3: Normal limited survey.
== END 2023-06-07 08:57 | disposition home or self-care (01) ==
PROVIDERS: Visit Provider Obstetrics & Gynecology
DX: Z36.2 Encounter for other antenatal screening follow-up (principal)
CPT/HCPCS: 76816

== ENCOUNTER 2023-07-06 09:46 | Outpatient (CLI) | payer OTHER, SELFPAY ==
[2023-07-06 11:17] LABS: Basophils Percent Auto 0.2 % (0.2-1.2); Eosinophils Absolute Auto 0.1 K/mm3 (0-0.3); Eosinophils Percent Auto 0.9 % (0-4.4); Hematocrit 36.6 % (37.0-47.0); Hemoglobin 11.9 g/dL (12.0-15.0); Immature Granulocyte Absolute 0.04 K/mm3 (0.00-0.031); Immature Granulocyte Percent A 0.5 % (0-0.5); Lymphocytes Absolute Auto 1.62 K/mm3 (0.9-3.2); Lymphocytes Percent Auto 18.9 % (18.3-44.2); Mean Corpuscular HGB Conc 32.5 g/dl (32-36); Mean Corpuscular Hemoglobin 28.7 pg (26-34); Mean Corpuscular Volume 88.2 fl (80-100); Mean Platelet Volume 10.1 fl (7.4-10.4); Monocytes Absolute Auto 0.5 K/mm3 (0.1-0.6); Monocytes Percent Auto 5.6 % (2.6-8.5); Neutrophils Absolute Auto 6.3 K/mm3 (1.3-6.7); Neutrophils Percent Auto 73.9 % (45.5-73.1); Platelet Count Result 231 k/mm3 (150-375); Red Blood Count 4.15 M/mm3 (4.2-5.4); Red Cell Distribution Width 14.4 % (11.5-14.5); White Blood Count 8.6 K/mm3 (4.5-10.0)
[2023-07-06 11:30] LABS: Glucose 1 Hour PP 50gm Dose 129 mg/dL
[2023-07-06 12:12] LABS: HIV 1/2 Ab P24 Ag Result Negative (Negative)
== END 2023-07-06 09:47 | disposition home or self-care (01) ==
PROVIDERS: Visit Provider Obstetrics & Gynecology
DX: Z34.90 Encounter for supervision of normal pregnancy, unspecified, unspecified trimester (principal); Z3A.00 Weeks of gestation of pregnancy not specified
CPT/HCPCS: 36415; 82947; 85025; 86703; G0432

== ENCOUNTER 2023-08-17 09:39 | Outpatient (CLI) | payer OTHER, SELFPAY ==
--- NOTE | ~2023-08-17 | US_ITS ---
EXAMINATION: US OB follow up DATE: 08/17/2023 10:34 INDICATION: Encounter for supervision of normal . TECHNIQUE: Real-time ultrasound of the pelvis was performed. COMPARISON: Ultrasound 06/07/2023, 02/16/23 FINDINGS: There is a single living fetus in vertex presentation. The placenta is anterior. heart rate is 163 beats per minute (bpm). The amniotic fluid index is 5.6 cm, which is low (5th percentile is 8.1 cm). The following biometric data were obtained: Biparietal diameter (BPD): 8.7 cm; head circumference (HC): 31.6 cm; abdominal circumference (AC): 31 .6 cm; femur length (FL): 6.7 cm. These measurements are concordant. Estimated weight is 2623 g +/- 393 g, which correlates with the 72nd percentile when 09/26/23 is used as estimated date of delivery. As single measurements, these parameters are each equal to the following estimated gestational ages: BPD: 35 weeks 2 days. HC: 35 weeks 3 days. AC: 35 weeks 4 days. FL: 34 weeks 4 days. estimated gestational age based solely on measurements from this exam is 35 weeks 2 days +/- 2 weeks 3 days. IMPRESSION: 1. Single living fetus in vertex presentation. 2. Estimated weight is 2623 g +/- 393 g, which correlates with the 72nd percentile when 4 is used as estimated date of delivery. 3. Oligohydramnios. Reviewed, dictated and finalized at location A. IMPRESSION: 1. Single living fetus in vertex presentation. 2. Estimated weight is 2623 g +/- 393 g, which correlates with the 72nd percentile when 09/26/23 is used as estimated date of delivery. 3. Oligohydramnios.
== END 2023-08-17 09:40 | disposition home or self-care (01) ==
LOC: ANHIMG 09:41
PROVIDERS: Visit Provider Obstetrics & Gynecology
DX: Z34.90 Encounter for supervision of normal pregnancy, unspecified, unspecified trimester (principal)
CPT/HCPCS: 76816

== ENCOUNTER 2023-08-29 13:39 | Outpatient (CLI) | payer OTHER, SELFPAY ==
--- NOTE | 2023-08-29 14:50 | PC.NURSE ---
Dr Agustin notified of variable decel and neg ROM plus, ok to dc home
[2023-08-29 14:52] VITALS: PULSE 101
== END 2023-08-29 15:00 | disposition home or self-care (01) ==
PROVIDERS: Visit Provider Obstetrics & Gynecology
DX: O41.8X90 Other specified disorders of amniotic fluid and membranes, unspecified trimester, not applicable or unspecified (principal)
CPT/HCPCS: 59025; 84112

== ENCOUNTER 2023-09-09 12:36 | Outpatient (RCR) | payer OTHER, SELFPAY ==
[2023-08-19 14:24] VITALS: BP 118/74; PULSE 117
[2023-08-26 13:58] VITALS: BP 104/71; PULSE 112
[2023-08-31 13:11] VITALS: BP 116/78; PULSE 109
--- NOTE | ~2023-09-09 | US_ITS ---
EXAMINATION: US OB limited w BPP DATE: 08/19/2023 14:37 CDT INDICATION: Oligohydramnios. TECHNIQUE: Real-time transabdominal obstetric ultrasound. FINDINGS: No prior studies for comparison. There is a single living fetus in vertex presentation. The placenta is anterior without placenta pre via. cardiac activity and movement is noted with a heart rate of 145 beats per minute. A mniotic fluid index is normal measuring 11.7 cm. Biophysical profile: breathin of 2 movement: 2 of 2 tone: 2 of 2 Amniotic flud pocket: 2 of 2 Total score: 8 of 8 IMPRESSION: 1. Single living intrauterine in vertex presentation. 2: Total biophysical profile score of 8/8. 3: Normal amniotic fluid volume. KELBY measures 11.7 cm. Reviewed, dictated and finalized at location B.
--- NOTE | ~2023-09-09 | US_ITS ---
EXAMINATION: US OB limited w BPP DATE: 08/26/2023 14:20 CDT INDICATION: Evaluate well-being TECHNIQUE: Real-time transabdominal obstetric ultrasound. FINDINGS: Ultrasound dated 08/19/2023 There is a single living fetus in vertex presentation. The placenta is anterior without placenta pre via. cardiac activity and movement is noted with a heart rate of 145 beats per minute. Biophysical profile: breathin of 2 movement: 2 of 2 tone: 2 of 2 Amniotic flud pocket: 2 of 2 Total score: 8 of 8 KELBY is below normal limits measuring 5.93 cm, consistent with oligohydramnios. IMPRESSION: 1. Single living intrauterine in vertex presentation. 2: Total biophysical profile score of 8/8. 3: Oligohydramnios. Reviewed, dictated and finalized at location B.
--- NOTE | ~2023-09-09 | US_ITS ---
EXAMINATION: US OB limited w BPP DATE: 09/09/2023 14:19 INDICATION: Third trimester. TECHNIQUE: Real-time pelvic ultrasound was performed. COMPARISON: Ultrasound 08/31/2023 FINDINGS: There is a single living fetus in vertex presentation. The placenta is anterior. heart rate is 146 beats per minute (bpm). The amniotic fluid index is 11.5 cm, which is normal. Biophysical profile performed by the technologist: breathing (30 sec sustained breathing in 30 minutes): 2 out of 2 movement (3 gross body movements in 30 minutes): 2 out of 2 tone (one episode of mngqqzn-nigqeqqoh-cxeiasj limb movement): 2 out of 2 Amniotic fluid pocket (2 cm): 2 out of 2 Total score: 8 out of 8 IMPRESSION: 1. Single living fetus in vertex presentation. 2. Biophysical profile 8 out of 8. Reviewed, dictated and finalized at location A.
--- NOTE | ~2023-09-09 | US_ITS ---
EXAMINATION: US OB limited w BPP DATE: 08/31/2023 13:56 INDICATION: Oligohydramnios. Third trimester. TECHNIQUE: Real-time pelvic ultrasound was performed. COMPARISON: Ultrasound 08/26/2023 FINDINGS: There is a single living fetus in vertex presentation. The placenta is anterior. heart rate is 148 beats per minute (bpm). The amniotic fluid index is 9.6 cm, which is normal. Biophysical profile performed by the technologist: breathing (30 sec sustained breathing in 30 minutes): 2 out of 2 movement (3 gross body movements in 30 minutes): 2 out of 2 tone (one episode of cjccdgu-ndbeeoajl-pwvxvxg limb movement): 2 out of 2 Amniotic fluid pocket (2 cm): 2 out of 2 Total score: 8 out of 8 IMPRESSION: 1. Single living fetus in vertex presentation. 2. Biophysical profile 8 out of 8. 3. Normal amniotic fluid index. Reviewed, dictated and finalized at location A.
[2023-09-09 13:30] VITALS: BP 113/73; PULSE 122
== END 2023-11-01 13:36 | disposition home or self-care (01) ==
LOC: ANHOBOP 12:36
PROVIDERS: Visit Provider Obstetrics & Gynecology
DX: O41.03X0 Oligohydramnios, third trimester, not applicable or unspecified (principal); Z3A.34 34 weeks gestation of pregnancy; Z3A.35 35 weeks gestation of pregnancy; Z3A.36 36 weeks gestation of pregnancy; Z3A.37 37 weeks gestation of pregnancy
CPT/HCPCS: 59025; 76815; 76819

== ENCOUNTER 2023-09-12 17:04 | Inpatient (IN) | payer OTHER, SELFPAY ==
[2023-09-12] VITALS (46 sets, daily range): BP systolic 88–124; BP diastolic 66–84; PULSE 95–148; TEMP 36.3–36.9; O2SAT 98–100; BMI 41.4
--- NOTE | 2023-09-12 17:44 | WPDANESEPP ---
Anes - Eval Pre Procedure Procedure: labor epidural Date/Time: 09/12/23 17:44 Surgeon: frances Preop Diagnosis: pain during labor Pre Op Diagnosis: Induction of Labor Patient Data Age: 23 Gender: F Height: Weight: Last Vital Signs Pulse 116 H 09/12/23 17:32 BP 122/80 09/12/23 17:32 Allergies Allergy/AdvReac Type Severity Reaction Status Date / Time latex Allergy Rash Verified 09/08/23 08:52 Home Medications Medication Instructions Recorded Confirmed Type ondansetron 4 mg disintegrating 4 mg PO Q8H PRN nausea and 05/18/23 09/08/23 Rx tablet vomiting #10 tabs albuterol sulfate 90 mcg/actuation 2 puff inhalation Q4H PRN 08/19/23 09/08/23 History aerosol inhaler shortness of breath or wheezing cholecalciferol (vitamin D3) 125 250 mcg PO Q48H 08/19/23 09/08/23 History mcg (5,000 unit) tablet (Vitamin D3) metoclopramide HCl 5 mg tablet 5 mg PO Q6H PRN Nausea And Vomiting 08/19/23 09/08/23 History vit no.95-ferrous 1 tablet PO DAILY 08/19/23 09/08/23 History fumarate 28 mg-folic acid 800 mcg tablet () Patient hx anesthesia problems: none Family hx anesthesia problems: none Results Review: All pre-operative results and documents have been reviewed as part of the pre-operative evaluation. [facility] Past Medical History Medical History Anxiety Asthma Chlamydia Family History Family History Father Hypertension Grandparent Diabetes mellitus maternal grandfather Social History Social History Smoking status: Never smoker Second hand tobacco smoke exposure: No Alcohol intake: never Substance use: never Substance use type: does not use Lack of Transportation: No Lack of Food: Never True Current Housing: Decline to Answer Concerned About Future Housing: No Difficulty Paying Gas/Electric Bills: No Difficulty Paying for Meds: No Currently Unemployed: YES Difficulty w/ Childcare or Family Care: Decline to Answer Living arrangements: with friend(s) Occupation/Education: unemployed Gender identity (if verbalized by the patient): Female Sexual Orientation (if Verbalized by the Patient): Straight or Heterosexual Spiritual care concerns: No Exam Day of Procedure 09/12/23 17:44
[2023-09-12] MEDS: DINOPROSTONE 10 MG VAG INSERT VAGINAL (17:49)
--- NOTE | 2023-09-12 18:08 | LDADM ---
This patient, Emy Davila, was admitted to Labor/Delivery/Recovery 103 on 09/12/23 at 17:04. Plans for labor, pain management and were discussed with patient. Patient/family oriented to hospital policies and general routines including ID bracelet, bed and alarms, visiting hours, pain management, procedures, bathroom and other care routines, personal items, smoking policy, room service/diet and guest tray routines, security routines, and visiting hours. Patient/Family are encouraged to report perceived risks to care and to ask questions if they do not understand what they are told or what they should do. See OBIX for further documentation.
[2023-09-12 18:15] LABS: Basophils Percent Auto 0.3 % (0.2-1.2); Eosinophils Absolute Auto 0.1 K/mm3 (0-0.3); Eosinophils Percent Auto 0.9 % (0-4.4); Hematocrit 32.7 % (37.0-47.0); Hemoglobin 10.7 g/dL (12.0-15.0); Immature Granulocyte Absolute 0.04 K/mm3 (0.00-0.031); Immature Granulocyte Percent A 0.4 % (0-0.5); Lymphocytes Absolute Auto 2.31 K/mm3 (0.9-3.2); Mean Corpuscular HGB Conc 32.7 g/dl (32-36); Mean Corpuscular Hemoglobin 26.7 pg (26-34); Mean Corpuscular Volume 81.5 fl (80-100); Mean Platelet Volume 10.7 fl (7.4-10.4); Monocytes Absolute Auto 0.9 K/mm3 (0.1-0.6); Monocytes Percent Auto 9.3 % (2.6-8.5); Neutrophils Absolute Auto 5.9 K/mm3 (1.3-6.7); Neutrophils Percent Auto 64.1 % (45.5-73.1); Platelet Count Result 263 k/mm3 (150-375); Red Blood Count 4.01 M/mm3 (4.2-5.4); Red Cell Distribution Width 14.2 % (11.5-14.5); White Blood Count 9.2 K/mm3 (4.5-10.0)
[2023-09-12 19:19] LABS: HIV 1/2 Ab P24 Ag Result Negative (Negative)
[2023-09-12] MEDS: LACTATED RINGERS 1,000 ML 125 ML IV CONT (22:57)
[2023-09-12] MEDS: fentaNYL CITRATE INJ (*CRX) 100 MCG/2 ML VIAL 50 MCG IV PUSH (22:58)
[2023-09-13] VITALS (218 sets, daily range): BP systolic 73–165; BP diastolic 30–130; PULSE 33–183; RESP 16–18; TEMP 36.6–37.5; O2SAT 76–100
[2023-09-13] MEDS: fentaNYL CITRATE INJ (*CRX) 100 MCG/2 ML VIAL 50 MCG IV PUSH (00:47)
[2023-09-13] MEDS: ONDANSETRON INJ 4 MG/2 ML VIAL IV PUSH (02:00)
[2023-09-13] MEDS: fentaNYL CITRATE INJ (*CRX) 100 MCG/2 ML VIAL IV PUSH (02:49)
[2023-09-13] MEDS: LACTATED RINGERS 1,000 ML 999 ML IV CONT (04:27)
[2023-09-13] MEDS: LACTATED RINGERS 1,000 ML 125 ML IV CONT ×2 (05:28→11:01)
[2023-09-13] MEDS: PHENYLEPHRINE 1,000 MCG/10 ML SYRINGE 100 MCG IV PUSH ×2 (05:40→05:55)
--- NOTE | 2023-09-13 07:18 | PM.IMHP ---
H&P: HPI History of Present Illness Date/Time: 09/13/23 07:20 Chief Complaint: Medical IOL Narrative: Emy is a 23yo @ 38.0wks who presents for medical IOL. She was diagnosed with oligohydramnios with KELBY of 5. She has been undergoing weekly ANT which has been reassuring. She reports good movement. No contractions, VB or LOF. She has had regular care. She is s/p cervidil, which was removed early due to painful contractions; now s/p epidural and comfortable. Her is complicated by: - Obesity- BMI 40, ASA @ 12 wk - Failed early GCT, 3 hr normal - Oligohydramnios (5cm); weekly NST/BPP/KELBY Review of Systems Constitutional: Constitutional: Denies chills, Denies fever(s) and Denies headache(s) Eyes: Eyes: Denies change in vision ENT: Denies headache(s) Cardiovascular: Cardiovascular: Denies chest pain and Denies dyspnea Respiratory: Respiratory: Denies dyspnea Genitourinary: Genitourinary: Denies abnormal vaginal bleeding and Denies vaginal discharge Neurologic: Denies headache(s) Psychiatric: Psychiatric: Denies anxiety and Denies depression [facility] Past Medical History Medical History Anxiety Asthma Chlamydia Family History Family History Father Hypertension Grandparent Diabetes mellitus maternal grandfather Social History Social History Smoking status: Never smoker Second hand tobacco smoke exposure: No Alcohol intake: never Substance use: never Substance use type: does not use Do You Feel Safe in your Home?: Yes Lack of Transportation: No Lack of Food: Never True Current Housing: I Have Housing Concerned About Future Housing: No Difficulty Paying Gas/Electric Bills: No Difficulty Paying for Meds: No Currently Unemployed: No Education: Grade School Difficulty w/ Childcare or Family Care: No Living arrangements: with friend(s) Occupation/Education: unemployed Gender identity (if verbalized by the patient): Female Sexual Orientation (if Verbalized by the Patient): Straight or Heterosexual Spiritual care concerns: No Meds Home Medications and Allergies Home Medications Medication Instructions Recorded Confirmed Type ondansetron 4 mg disintegrating 4 mg PO Q8H PRN nausea and 05/18/23 09/12/23 Rx tablet vomiting #10 tabs albuterol sulfate 90 mcg/actuation 2 puff inhalation Q4H PRN 08/19/23 09/12/23 History aerosol inhaler shortness of breath or wheezing cholecalciferol (vitamin D3) 125 250 mcg PO Q48H 08/19/23 09/12/23 History mcg (5,000 unit) tablet (Vitamin D3) metoclopramide HCl 5 mg tablet 5 mg PO Q6H PRN Nausea And Vomiting 08/19/23 09/12/23 History vit no.95-ferrous 1 tablet PO DAILY 08/19/23 09/12/23 History fumarate 28 mg-folic acid 800 mcg tablet () Allergies Allergy/AdvReac Type Severity Reaction Status Date / Time latex Allergy Rash Verified 09/12/23 18:24 Vital Signs Vital Signs - 24 hr 09/12/23 18:08 09/12/23 17:32 09/12/23 18:31 Temperature Pulse Rate 116 H 107 H Blood Pressure 122/80 88/70 L Oxygen Delivery Room Air 09/12/23 19:00 09/12/23 19:05 09/12/23 19:32 Temperature 97.5 F L Pulse Rate 108 H 103 H Blood Pressure 109/72 124/66 Oxygen Delivery 09/12/23 19:52 09/12/23 19:51 Temperature 97.3 F L Pulse Rate 102 H Blood Pressure 105/73 Oxygen Delivery Exam Const: General: cooperative, comfortable, no acute distress and obese Nutritional Appearance: obese Orientation/consciousness: patient oriented x3 Resp: Effort & Inspection: normal respiratory effort Cardio: Rate: regular rate GI: GI Palp: No abdominal tenderness : Other: FHT's: 150's/ mod lisa/ + accels/ occasional late/variable decels s/p epidural (had some hypotension) - cat 2, reassuring TOCO: ctxs q2-3min Cervix: 4/70/-2 Membranes: AROM, clear 0713 Presentation: cephalic Skin: General skin exam: normal color Neuro: General: patient oriented x3 Extrem: General: normal to inspection Psych: Appearance: grossly normal Affect: normal affect Attitude: cooperative H&P: Results Labs Labs: Short CBC 09/12/23 Range/Units 17:18 WBC 9.2 (4.5-10.0) K/mm3 Hgb 10.7 L (12.0-15.0) g/dL Hct 32.7 L (37.0-47.0) % Plt Count 263 (150-375) k/mm3 Assessment and Plan Assessment and plan (1) Oligohydramnios in third trimester: Qualifiers: Fetus number: single or unspecified fetus Qualified Code(s): O41.03X0 - Oligohydramnios, third trimester, not applicable or unspecified Code(s): O41.03X0 - Oligohydramnios, third trimester, not applicable or unspecified Status: Acute Plan - S/p cervidil overnight - AROM, clear -- performed this morning; IUPC placed on this exam - Low dose Pitocin augmentation per protocol if needed; currently adequately dez w/o - Continuous monitoring currently reassuring, but continuing to perform intrauterine resuscitation - GBS negative - S/p Anesthesia consult and comfortable
[2023-09-13] MEDS: OXYTOCIN 30 UNITS/NS 500 ML 30 UNITS/500 ML BAG 999 UNITS IV CONT (12:10)
--- NOTE | 2023-09-13 12:29 | PM.OBPRVD ---
OB - Vaginal Delivery Note Procedure Delivery date: 09/13/23 Events: Oligohydramnios Intrapartal Events: Decelerations Induction method: Per Misoprostol Protocol Delivery augmentation: Rupture of Membranes Delivery monitor: External FHT and Internal Uterine Route of delivery: Episiotomy description: None Laceration Description: Perineal - 1st Degree Delivery repair: vicryl Specimen: Yes (placenta) Quantitative Blood Loss (ml): 100 Anesthesia type: Epidural Disposition: Floor Complications: No immediate complications Jackson Baby Date of : 09/13/23 Time of : 12:07 Weeks of gestation at delivery: 38 (.1) Infant gender: Male presentation: vertex position: Right Occiput Anterior Placenta delivery description: Expressed Cord Vessel Description: 3 Vessels and Delayed Cord Clamping score one minute: 8 score five minutes: 9 Narrative: Emy was found to be completely dilated after large heart deceleration was noted. She had strong desire to push and pushed for approximately 10 minutes good maternal effort. heart tones were reassuring while she was pushing. She delivered the head over intact perineum. No nuchal cord was palpated. She easily delivered the infant's shoulders and body without complication. The infant was immediately placed skin to skin and his mouth and nose were bulb suctioned and spontaneous cry was heard. Delayed cord clamping was performed. The umbilical cord was then doubly clamped and cut. A segment of cord was collected for cord gases. The remaining cord blood was collected for typing. With Pitocin running and gentle downward traction on the cord, the placenta delivered without complications. Good uterine tone with minimal bleeding was noted. She was examined and a small first-degree perineal laceration was identified. It was repaired in the normal fashion using 2-0 Vicryl. Bimanual massage was once again performed and good uterine tone with minimal bleeding was noted. Sponge, lap, instrument, and needle counts were correct at the end procedure. Mom and baby were left bonding birthing suite in stable condition.
[2023-09-13] MEDS: OXYTOCIN 30 UNITS/NS 500 ML 30 UNITS/500 ML BAG 125 UNITS IV CONT (12:40)
--- NOTE | 2023-09-13 13:16 | S_PTH ---
PATIENT: Emy Davila LOC: [facility] U#:[id number] AGE/SX: 23/F ROOM: 291 RE09/12/[address]: Sharron Agustin MD : 2000 BED: 00 DIS: 09/15/2023 SPEC #: [id number] RECD: 09/13/23 14:26 STATUS: CRISTELA REQ #: [id number] OMAR: 09/13/23 13:[address]: Sharron Agustin DEPT: [facility] Surgical RECD BY: Marycruz Moser ENTERED: 09/13/23 14:26 SP TYPE: Surgical OTHR DR: Avi Cooper MD UNKNOWN,DOCTOR Tissues: A - Placenta Procedures: Hematoxylin and Eosin Stain Gross and Microscopic Level 5
[2023-09-13 14:08] LABS: Rapid Plasma Reagin Non-Reactive (NonReactive)
[2023-09-13] MEDS: BENZOCAINE 20% AER SPR (*SP) 56 GM CAN 1 SPRAY TOPICAL (14:23)
[2023-09-13] MEDS: WITCH HAZEL 40 PADS 1 PAD TOPICAL (14:23)
--- NOTE | 2023-09-13 14:44 | OBPPTRN ---
Patient transferred to post room #291 via wheelchair. Support person present. Oriented to unit, room, information board, rooming in, admission packet and security measures. Patient verbalizes understanding.
[2023-09-13] MEDS: IBUPROFEN 600 MG TABLET PO (15:07)
--- NOTE | 2023-09-13 17:40 | PC.NURSE ---
1630: Patient attempting to awaken and breastfeed ; infant undressed, skin to skin and still would not open his mouth or latch; mother expressed some drops of colostrum to entice ; encouraged skin to skin and retry in 30 minutes 1735: Patient changing infant's diaper to try to awaken him for the feeding; infant is more awake than the last attempt but does not give effort to open wide or latch. Mother prefers cradle hold but was open to trying football hold. Baby had several large burps and some mucous spit up and then we were able to latch him to the right breast in football hold. Infant was not able to be stimulated to suck despite repeated attempts to awaken him and latch him. Mother's dinner arrived and she needed to use the restroom so infant was swaddled and mother will try to feed again in 30 minutes; reported to Emma Meeks RN
[2023-09-14] MEDS: IBUPROFEN 600 MG TABLET PO ×2 (00:27→19:22)
[2023-09-14] MEDS: ACETAMINOPHEN 325 MG TABLET 650 MG PO ×2 (00:27→19:21)
[2023-09-14 03:54] VITALS: BP 106/68; PULSE 90; RESP 20; TEMP 36.4; O2SAT 99
[2023-09-14] MEDS: DOCUSATE SODIUM 100 MG CAPSULE PO ×2 (06:36→17:38)
[2023-09-14] MEDS: MULTIVIT/MIN/PREN/FOL AC/IRON TABLET 1 TAB PO (06:36)
--- NOTE | 2023-09-14 07:13 | P.PNOB_ITS ---
OB - PN: Subj Subjective Date/time seen: 09/14/23 07:13 Narrative: PPD#1 Emy reports doing well today. Her bleeding is water purification chemist. Her pain is controlled. She is tolerating regular diet, voiding, passing gas, and ambulating without issues. She is breast and bottle feeding. She would like her son circumcised. Would like to go home today if possible. OB - PN: Obj Data Labs 09/14/23 04:26 Labs: Laboratory Results - last 24 hr 09/12/23 09/14/23 17:18 04:26 Hgb 11.0 L Hct 35.0 L RPR Non-reactive OB - PN A/P Assessment and Plan (1) Normal vaginal delivery of second : Code(s): O80 - Encounter for full-term uncomplicated delivery Status: Acute Plan day: 1 Plan: routine care and discharge home (this PM or tomorrow AM) Comments: - PO pain meds - Regular diet - Ambulation and hydration encouraged - Continue putting baby to breast q2-3hr Time Spent With Patient Time: Total time spent is greater than 50% in coordination of care (as documented) at patient's floor/unit and/or counseling patient: Review of Systems Constitutional: Constitutional: Denies chills, Denies fever(s) and Denies headache(s) Eyes: Eyes: Denies change in vision ENT: Denies dizziness and Denies headache(s) Cardiovascular: Cardiovascular: Denies chest pain, Denies palpitations and Denies dyspnea Respiratory: Respiratory: Denies cough and Denies dyspnea Gastrointestinal: Gastrointestinal: Denies nausea and Denies vomiting Neurologic: Denies dizziness and Denies headache(s) Endocrine: Endocrine: Denies palpitations Exam Const: General: cooperative, comfortable and no acute distress Orientation/consciousness: patient oriented x3 Resp: Effort & Inspection: normal respiratory effort Auscultation: clear to auscultation bilaterally Cardio: Rate: regular rate GI: Inspection: non-distended GI Palp: No abdominal tenderness and Yes Soft to palpation Auscultation: normal bowel sounds : Other: fundus firm Skin: General skin exam: normal color Neuro: General: patient oriented x3 Extrem: General: normal to inspection Psych: Appearance: grossly normal Affect: normal affect Attitude: cooperative
[2023-09-14 08:55] VITALS: BP 119/60; PULSE 80; RESP 18; TEMP 36.8; O2SAT 99
--- NOTE | 2023-09-14 12:36 | PC.NURSE ---
0830 Consulted with patient to assess needs related to . Discussed with mother her successes, concerns and any questions she has. We reviewed working with the infant, supporting breast, protecting her nipples with an optimal deep latch, good positioning, and good hand washing. circumcised this morning. Encouraged understanding the benefits of skin to skin, responding to feeding cues, frequencies of feeding 8-12 times in 24 hours (approximately 2-3 hours), duration of feedings, milk production, intake/output feeding sheet and signs of adequate intake encouraging swallowing at the breast. Reviewed positioning and alignment, supporting breast, off-centered (asymmetrical latch) and leading with the chin with big, open, wide gape. Multiple attempts made to latch infant to breast; very sleepy reluctant to nurse. Encouraged skin to skin and hand expressing colostrum to feed to . Education given to the mother of how to visualize the suckling (with good rocking jaw motion) swallows (dropping of the lower jaw) and how to listen for drinking at the breast (the ka sound). Nipple care reviewed with optimal latch, good positioning and using clean hands when touching her breast. Mother encouraged to try to relatch and feed in the next hour to see if he will be more alert and eager to eat. Reported to the Primary RN. 1215. Mother called for assistance latching infant. Mother reported she was able to get latched for a couple minutes then he falls asleep and delatches. RN worked with mother and infant to latch; multiple attempts made; mother requested nipple shield. Infant latched optimally to the L breast in cross cradle position with the nipple shield. Reviewed good handwashing, cleaning the nipple shield and the appropriate way to apply and use as a tool. Discussed with mom the nipple shield precautions, possible complications associated with the risks and benefits. Reviewed practicing with a nipple shield, then without and how to protect the milk supply and production. Mom and baby guide referred to as a resource for outpatient services, community resources and when to call a provider. Mom voiced understanding of the importance of hand expression, nipple stimulation and initiating a pumping schedule if infant continues to nurse with the shield. Reported to the Primary RN.
--- NOTE | 2023-09-14 15:42 | WPDANLDPN2 ---
Anes-Prog Note L&D Date/Time: 09/14/23 15:42 Comfortable throughout: labor and delivery Neuraxial method: epidural Epidural/Spinal procedure site: tender Neuro status: Neuro function grossly intact. Cardiovascular status: normal Respiratory status: normal Airway patency: baseline Mental status: baseline Post-Op hydration status: normal Vital Signs: Last Vital Signs Temp 36.8 C 09/14/23 08:55 Pulse 80 09/14/23 08:55 Resp 18 09/14/23 08:55 BP 119/60 09/14/23 08:55 Pulse Ox 99 09/14/23 08:55 O2 Del Method Room Air 09/14/23 06:45 Pain score (VAS): 3/10 I/O: Intake & Output 09/13/23 09/14/23 09/14/23 23:59 07:59 15:59 Intake Total 500 Balance 500 Post-procedural complaints: none Patient feedback: Patient satisfied with anesthetic care.
--- NOTE | 2023-09-14 17:52 | PCCCNOTE ---
Recvd CC consult due to questionable housing and childcare. Met with pt. and MICKEY Kong at bedside. Pt. reports she, FOB, and 2 children will be living in the home on [address] in [place], [place]. Pt. reports her daughter stays with her godparents sometimes, and they currently are providing care for her. Pt. denies prior involvement with DCFS. Pt. denies drug use during . Pt. reports her sister, 2 godparents of pt's daughter, and FOB parents are all supportive. Pt. reports has baby supplies for . Pt. reports established with both WIC and [employer] [place]. and childcare resources provided to pt. Pt. declined need for homeless jail resources, as MICKEY Kong's parents own the home they live in and have no concerns for lack of housing. JESUS ALBERTO Stanton aware.
[2023-09-14 18:50] VITALS: BP 110/68; PULSE 94; RESP 18; TEMP 37.4; O2SAT 100
[2023-09-15] MEDS: ACETAMINOPHEN/ASPIRIN/CAFFEINE 250-250-65 MG TABLET 1 TABLET PO ×2 (02:52→17:06)
[2023-09-15] MEDS: IBUPROFEN 600 MG TABLET PO (06:42)
[2023-09-15] MEDS: MULTIVIT/MIN/PREN/FOL AC/IRON TABLET 1 TAB PO (06:43)
[2023-09-15] MEDS: DOCUSATE SODIUM 100 MG CAPSULE PO (06:43)
--- NOTE | 2023-09-15 07:27 | P.DS_ITS ---
DS: Admitting Diagnosis Discharge Date 09/15/23 Admitting Diagnosis Medical induction of labor Oligohydramnios DS: Discharge Diagnosis Discharge Diagnosis (1) Normal vaginal delivery of second : Code(s): O80 - Encounter for full-term uncomplicated delivery Status: Acute OB - DS: Summary OB Procedures : NST and Ultrasound OB Procedures Intrapartum: Spontaneous Vag Delivery OB Procedures: : None Peripartum Data Infant Delivery Method: Natural Vaginal Laceration Description: Perineal - 1st Degree Episiotomy description: None complications: none 1: Gender: Male Disposition of : home Status at Discharge Functional status at discharge: independent ambulation Overall status at discharge: patient is back to baseline Time Spent with Patient Time attestation: Total time spent providing and/or coordinating discharge services: Exam Const: General: cooperative, comfortable, no acute distress and obese Orie ntation/consciousness: patient oriented x3 Resp: Effort & Inspection: normal respiratory effort Auscultation: clear to auscultation bilaterally Cardio: Rate: regular rate GI: Inspection: non-distended GI Palp: No abdominal tenderness and Yes Soft to palpation Auscultation: normal bowel sounds : Other: fundus firm Skin: General skin exam: normal color Neuro: General: patient oriented x3 Extrem: General: normal to inspection Psych: Appearance: grossly normal Affect: normal affect Attitude: cooperative DS: Data Data Completed and Pending Pending studies at discharge: Pending at discharge 09/13/23 13:16 Surgical [PTH] Routine Labs on day of discharge: Labs from last 24 hours 09/14/23 04:26 Hgb 11.0 L Hct 35.0 L Discharge Plan Discharge Attending physician on discharge: Sharron Agustin Discharging Clinician: Sharron Agustin Anticipated Discharge Date/Time: 09/15/23 09:00 Patient Disposition: Home, Self-Care Activity: may shower and pelvic rest Diet: regular Patient Instructions: Vaginal Delivery (DC) Stand Alone Forms: General Discharge Information Follow-up/Referrals: Sharron Agustin MD [Physician] - 4 Weeks Discharge Medications: New acetaminophen 325 mg Tablet 650 mg PO Q6H PRN (Reason: Mild Pain (1-3) Or Headache) Qty: 60 0RF docusate sodium 100 mg Capsule 100 mg PO BID PRN (Reason: Constipation) Qty: 60 0RF ibuprofen 600 mg Tablet 600 mg PO Q6H PRN (Reason: Cramping) Qty: 40 0RF Continued cholecalciferol (vitamin D3) [Vitamin D3] 125 mcg (5,000 unit) Tablet 250 mcg PO Q48H PNV cmb#95-ferrous fumarate-FA [] 28 mg iron- 800 mcg Tablet 1 tablet PO DAILY albuterol sulfate 90 mcg/actuation HFA aerosol inhaler 2 puff inhalation Q4H PRN (Reason: shortness of breath or wheezing) Discontinued ondansetron 4 mg tablet,disintegrating 4 mg PO Q8H PRN (Reason: nausea and vomiting) Qty: 10 0RF metoclopramide HCl 5 mg tablet 5 mg PO Q6H PRN (Reason: Nausea And Vomiting) Date of admission: 09/12/23 17:04 Primary Care Provider: UNKNOWN,DOCTOR Admitting Provider: Avi Cooper Attending physician on admission: vAi Cooper Condition: Stable
[2023-09-15 08:20] VITALS: BP 108/62; PULSE 82; RESP 16; TEMP 36.9; O2SAT 100
--- NOTE | 2023-09-15 09:21 | PC.NURSE ---
Patient viewed the discharge video Mother & Baby Care, The First Two Weeks. Patient was given the opportunity and encouraged to ask questions. Patient verbalized understanding of information shared and has been given the mother/baby guide for home reference.
[2023-09-17 14:54] VITALS: BP 119/63; PULSE 82; RESP 18; TEMP 36.8; O2SAT 100
== END 2023-09-15 17:15 | disposition home or self-care (01) | DRG 560 ==
LOC: ANHLDR 09-13 13:40 → ANHOB2 09-14 07:15 → ANHLDR 09-19 10:38 → ANHOB2 09-19 10:38
PROVIDERS: Admitting Provider Obstetrics & Gynecology; Visit Provider Obstetrics & Gynecology
DX: O41.03X0 Oligohydramnios, third trimester, not applicable or unspecified (principal); Z37.0 Single live birth; Z3A.38 38 weeks gestation of pregnancy; O70.0 First degree perineal laceration during delivery; O99.214 Obesity complicating childbirth; O36.8330 Maternal care for abnormalities of the fetal heart rate or rhythm, third trimester, not applicable or unspecified
CPT/HCPCS: 36415; 85014; 85018; 85025; 86592; 86703; 86850; 86900; 86901; 88307; A9270; G0432; J2371; J2405; J2590; J2795; J3010; J7120

== ENCOUNTER 2023-11-03 08:40 | Emergency (ER) | payer OTHER, SELFPAY ==
[2023-11-03 09:34] VITALS: BP 112/69; PULSE 79; RESP 18; TEMP 36.4; O2SAT 100
--- NOTE | 2023-11-03 10:23 | ED.DENTAL ---
HPI - Dental/Oral General Chief complaint: Dental/Oral Stated complaint: oral pain Time Seen by Provider: 11/03/23 10:24 Source: patient, RN notes reviewed and old records reviewed Mode of arrival: ambulatory Limitations: no limitations History of Present Illness HPI Narrative: Patient presents with complaints dental pain and left-sided facial swelling. She reports dental pain began yesterday, noted facial swelling upon awakening this morning. She denies any injury or trauma. She does report it is been quite awhile since she has been to the dentist, she reports that she has known tooth decay, and that the affected tooth today is broken. Denies all other injury and trauma. She is able to manage her own secretions, no drooling or stridor Related Data Home Medications Medication Instructions Recorded Confirmed albuterol sulfate 90 mcg/actuation 2 puff inhalation Q4H PRN 08/19/23 11/03/23 aerosol inhaler shortness of breath or wheezing cholecalciferol (vitamin D3) 125 250 mcg PO Q48H 08/19/23 11/03/23 mcg (5,000 unit) tablet (Vitamin D3) vit no.95-ferrous 1 tablet PO DAILY 08/19/23 11/03/23 fumarate 28 mg-folic acid 800 mcg tablet () Allergies Allergy/AdvReac Type Severity Reaction Status Date / Time latex Allergy Rash Verified 11/03/23 09:50 Review of Systems Review of Systems: All systems reviewed & are unremarkable except as noted in HPI and below Constitutional: Constitutional: Reports no additional constitutional complaints ENT: Reports system reviewed and no additional complaints, except as documented, Reports as per HPI and Reports dental pain Cardiovascular: Cardiovascular: Reports no additional cardiovascular complaints Respiratory: Respiratory: Reports no additional respiratory complaints Gastrointestinal: Gastrointestinal: Reports no additional gastrointestinal complaints [facility] Past Medical History Medical History Anxiety Asthma Chlamydia Family History Family History Father Hypertension Grandparent Diabetes mellitus maternal grandfather Social History Social History Smoking status: Never smoker Second hand tobacco smoke exposure: No Alcohol intake: never Substance use: never Substance use type: does not use Do You Feel Safe in your Home?: Yes Lack of Transportation: No Lack of Food: Never True Current Housing: I Have Housing Concerned About Future Housing: No Difficulty Paying Gas/Electric Bills: No Difficulty Paying for Meds: No Currently Unemployed: No Education: Grade School Difficulty w/ Childcare or Family Care: No Living arrangements: with friend(s) Occupation/Education: unemployed Gender identity (if verbalized by the patient): Female Sexual Orientation (if Verbalized by the Patient): Straight or Heterosexual Spiritual care concerns: No Comments At the time of my signature, I reviewed and agree with the nursing past medical, surgical, social, and family history. There is no relevant family history pertinent to the patient complaint. Exam Const: General: cooperative, no acute distress, alert and awake Orientation/consciousness: oriented to person, oriented to place and oriented to time HENMT: Ears: TM's normal bilaterally Face and sinus: Facial tenderness on exam of face and sinuses on the left mandible Face images: 1. swelling Mouth: Yes moist mucous membranes, No drooling, No mouth trauma and No trismus Teeth and gingiva: abnormal tooth and associated gingiva (left lower) and poor dentition Resp: Effort & Inspection: normal respiratory effort and able to speak in complete sentences Auscultation: clear to auscultation bilaterally, no crackles, no rales, no rhonchi and no wheezes Cardio: Palpation: normal PMI Rate: regular rate
== END 2023-11-03 10:34 | disposition home or self-care (01) ==
PROVIDERS: Emergency Provider Nurse Practitioner Family; Referring Provider Emergency Medicine
DX: K04.7 Periapical abscess without sinus (principal); J45.909 Unspecified asthma, uncomplicated
CPT/HCPCS: 99213; G0463

== ENCOUNTER 2024-02-06 09:04 | Emergency (ER) | payer OTHER, SELFPAY ==
--- NOTE | ~2024-02-06 | XR_ITS ---
EXAMINATION: XR foot RT min 3V DATE: 02/06/2024 09:28 INDICATION: Right fifth toe injury and pain. TECHNIQUE: 4 views of right fifth toe were obtained. COMPARISON: None. FINDINGS: Bone alignment is normal. No fracture. Joint spaces are normal. IMPRESSION: 1. No fracture. Reviewed, dictated and finalized at location A. T PROTECTION ASSISTANT IMPRESSION: 1. No fracture.
[2024-02-06 09:10] VITALS: BP 116/74; PULSE 81; RESP 16; TEMP 36.4; O2SAT 100
--- NOTE | 2024-02-06 09:18 | ED_ITS ---
HPI - Extremity Injury (Lower) General Chief Complaint: Extremity Injury, Lower Stated Complaint: RT foot 5th toe injury Source: patient, RN notes reviewed and old records reviewed Mode of arrival: ambulatory Limitations: no limitations History of Present Illness HPI Narrative: Patient presents with complaints of right 5th toe pain. She reports that she stopped the affected toe about 1 week ago. Immediately iced the area, has been trying to keep elevated, and has been taking ibuprofen. She reports that she is concerned because the toe still hurts. She denies other injury and trauma. Voices no other concerns or complaints today. Related Data Home Medications Medication Instructions Recorded Confirmed albuterol sulfate 90 mcg/actuation 2 puff inhalation Q4H PRN 08/19/23 02/06/24 aerosol inhaler shortness of breath or wheezing cholecalciferol (vitamin D3) 125 250 mcg PO Q48H 08/19/23 02/06/24 mcg (5,000 unit) tablet (Vitamin D3) Allergies Allergy/AdvReac Type Severity Reaction Status Date / Time latex AdvReac Mild Rash Verified 02/06/24 09:07 Review of Systems Review of Systems: All systems reviewed & are unremarkable except as noted in HPI and below Constitutional: Constitutional: Reports no additional constitutional complaints ENT: Reports system reviewed and no additional complaints, except as documented Cardiovascular: Cardiovascular: Reports no additional cardiovascular complaints Respiratory: Respiratory: Reports no additional respiratory complaints Gastrointestinal: Gastrointestinal: Reports no additional gastrointestinal complaints Musculoskeletal: Musculoskeletal: Reports no additional musculoskeletal complaints and Reports as per HPI [facility] Past Medical History Medical History Anxiety Asthma Chlamydia Family History Family History Father Hypertension Grandparent Diabetes mellitus maternal grandfather Social History Social History Smoking status: Never smoker Second hand tobacco smoke exposure: No Alcohol intake: never Substance use: never Substance use type: does not use Do You Feel Safe in your Home?: Yes Lack of Transportation: No Lack of Food: Never True Current Housing: I Have Housing Concerned About Future Housing: No Difficulty Paying Gas/Electric Bills: No Difficulty Paying for Meds: No Currently Unemployed: No Education: Grade School Difficulty w/ Childcare or Family Care: No Living arrangements: with friend(s) Occupation/Education: unemployed Gender identity (if verbalized by the patient): Female Sexual Orientation (if Verbalized by the Patient): Straight or Heterosexual Spiritual care concerns: No Comments At the time of my signature, I reviewed and agree with the nursing past medical, surgical, social, and family history. There is no relevant family history pertinent to the patient complaint. Exam Const: General: cooperative, no acute distress, alert and awake Orientation/consciousness: oriented to person, oriented to place and oriented to time HENMT: Head: normal to inspection Resp: Effort & Inspection: normal respiratory effort and able to speak in complete sentences Auscultation: clear to auscultation bilaterally, no crackles, no rales, no rhonchi and no wheezes Cardio: Palpation: normal PMI Rate: regular rate Rhythm: regular rhythm Heart sounds: S1 normal heart sound present and S2 normal heart sound present Neuro: General: oriented to person, oriented to place and oriented to time Cranial nerves: Yes CN's II-XII intact bilaterally Extrem: Right lower extremity: foot Details: normal capillary refill and tenderness Location: of another digit ( Fifth digit) Psych: Appearance: grossly normal Thought process: Normal thought process present Insight: Good insight present (Psych) Judgement: Good judgement present (Psych) Course Course Level of Care: Express Care Visit Vital Signs Vital signs: Vital Signs Temperature 97.6 F 02/06/24 09:10 Pulse Rate 81 02/06/24 09:10 Respiratory Rate 16 02/06/24 09:10 Blood Pressure 116/74 02/06/24 09:10 Pulse Oximetry 100 02/06/24 09:10 Oxygen Delivery Room Air 02/06/24 09:10 Temperature 97.6 F 02/06/24 09:10 Pulse Rate 81 02/06/24 09:10 Respiratory Rate 16 02/06/24 09:10 Blood Pressure 116/74 02/06/24 09:10 Pulse Oximetry 100 02/06/24 09:10 Oxygen Delivery Room Air 02/06/24 09:10 Reviewed MDM - Extremity Injury (Lower) MDM Narrative Medical decision making narrative: negative x-ray of the foot. Patient advised to continue with supportive care measures. Discharge instructions reviewed with patient, as well as provided in writing per nursing staff. The instructions also include specific and strict return/GO TO THE ER as well as f/u information. All questions have been answered, and the patient deny any further questions with discharge and discharge plan. Some parts of this dictation were generated by voice recognition software and may contain typographical and/or grammatical inaccuracies. Differential Diagnosis Differential diagnosis: Likely fracture of toe Medical Records Attestation: I reviewed the patient's medical records. Imaging Data Attestation: I personally reviewed and interpreted this imaging study as follows: My impression: negative Radiologist's impression: [address] [address] XRay Report Signed Patient: Emy Davila : 2000 MR#: [id number] Age: 23 Acct:[id number] Loc: [facility] ADM Date: 02/06/24Attending Dr: Ordering Physician: Yisel Fowler FNP Date of Service: 02/06/24 Procedure(s): XR foot RT min 3V Accession Number(s): [id number] cc: Yisel Fowler FNP; PERFORMANCE TEST CONSULTANT PHYSICIAN~ EXAMINATION: XR foot RT min 3V DATE: 02/06/2024 09:28 INDICATION: Right fifth toe injury and pain. TECHNIQUE: 4 views of right fifth toe were obtained. COMPARISON: None. FINDINGS: Bone alignment is normal. No fracture. Joint spaces are normal. IMPRESSION: 1. No fracture. Reviewed, dictated and finalized at location A. FIXER Dictated By: Philippe Arana MD 02/06/24928 Signed By: <Electronically signed by Philippe Arana MD in OV> 02/06/24933 Discharge Plan Discharge Clinical Impression: Acute foot pain Qualifiers: Laterality: right Qualified Code(s): M79.671 - Pain in right foot Patient Disposition: Home, Self-Care Condition: Stable Instructions: Antibiotic Form, P.R.I.C.E. Treatment (ED) Additional Instructions: continue supportive care measures. Emergency department for new or worse symptoms. Follow with primary care provider Patient Language: Macedonian Prescriptions: No Action cholecalciferol (vitamin D3) [Vitamin D3] 125 mcg (5,000 unit) Tablet 250 mcg PO Q48H albuterol sulfate 90 mcg/actuation HFA aerosol inhaler 2 puff inhalation Q4H PRN (Reason: shortness of breath or wheezing) Follow-up/Referrals: PHYSICIAN,PERFORMANCE TEST CONSULTANT [Primary Care Provider] - Time of Disposition: 09:54
== END 2024-02-06 09:55 | disposition home or self-care (01) ==
PROVIDERS: Emergency Provider Nurse Practitioner Family
DX: M79.671 Pain in right foot (principal); J45.909 Unspecified asthma, uncomplicated
CPT/HCPCS: 73630; 99213; G0463

== ENCOUNTER 2024-04-19 08:56 | Emergency (ER) | payer OTHER, SELFPAY ==
[2024-04-19 09:05] VITALS: BP 94/74; PULSE 122; RESP 18; TEMP 36.8; O2SAT 100
--- NOTE | 2024-04-19 09:05 | ED_ITS ---
HPI - URI/Sore Throat General Chief Complaint: Upper Respiratory Infection Stated Complaint: sore throat / head pain/ dizzy / nauseous Time Seen by Provider: 04/19/24 09:00 Source: patient Mode of arrival: ambulatory Limitations: no limitations History of Present Illness HPI Narrative: Patient is a 23-year-old female who presents with sore throat, left ear pain, headache, nausea since yesterday. Patient also states she has felt fatigued and lightheaded when she stands up. Patient has taken allergy medicine and ibuprofen. States her children have also been sick but 1 just had and a common cold and the other and ear infection. Denies any fever, chills, vomiting, diarrhea, cough Related Data Home Medications ?Medication ?Instructions ?Recorded ?Confirmed ?Last Taken ?Type albuterol sulfate 90 mcg/actuation 2 puff inhalation Q4H PRN 08/19/23 02/06/24 09/11/23 History aerosol inhaler shortness of breath or wheezing cholecalciferol (vitamin D3) 125 250 mcg PO Q48H 08/19/23 02/06/24 09/11/23 History mcg (5,000 unit) tablet (Vitamin D3) Allergies Allergy/AdvReac Type Severity Reaction Status Date / Time latex Allergy Mild Rash Verified 04/19/24 09:10 Review of Systems Review of Systems: All systems reviewed & are unremarkable except as noted in HPI and below Constitutional: Constitutional: Denies body ache(s), Denies chills, Reports fatigue, Denies fever(s), Reports headache(s), Denies malaise and Denies weakness Eyes: Eyes: Denies blurry vision, Denies itchy eyes and Denies loss of vision ENT: Denies otalgia, Reports headache(s), Denies nasal congestion, Denies sinus pain and Reports sore throat Cardiovascular: Cardiovascular: Denies chest pain, Denies irregular heart rhythm and Denies dyspnea Respiratory: Respiratory: Denies cough and Denies dyspnea Gastrointestinal: Gastrointestinal: Denies abdominal pain, Denies diarrhea, Reports nausea and Denies vomiting Musculoskeletal: Musculoskeletal: Denies back pain, Denies myalgias and Denies arthralgias Integumentary/Breasts: Skin/Breast: Denies pruritus and Denies rash Neurologic: Reports headache(s), Denies loss of vision and Denies weakness Psychiatric: Psychiatric: Reports no additional psychiatric complaints Endocrine: Endocrine: Denies fatigue Allergic/Immunologic: Allergic/Immunologic: Denies itchy eyes PMFSH Past Medical History Medical History Chlamydia Anxiety Asthma Family History Family History Father Hypertension Grandparent Diabetes mellitus maternal grandfather Social History Social History Smoking status: Never smoker Second hand tobacco smoke exposure: No Alcohol intake: never Substance use: never Substance use type: does not use Do You Feel Safe in your Home?: Yes Lack of Transportation: No Lack of Food: Never True Current Housing: I Have Housing Concerned About Future Housing: No Difficulty Paying Gas/Electric Bills: No Difficulty Paying for Meds: No Currently Unemployed: No Education: Grade School Difficulty w/ Childcare or Family Care: No Living arrangements: with friend(s) Occupation/Education: unemployed Gender identity (if verbalized by the patient): Female Sexual Orientation (if Verbalized by the Patient): Straight or Heterosexual Spiritual care concerns: No Comments At time of signature, agree with nursing past medical, surgical, social and family history. There is no relevant family history pertinent to the presenting complaint. Exam Const: General: cooperative, healthy appearing, comfortable, no acute distress and well nourished Nutritional Appearance: well nourished Orientation/consciousness: patient oriented x3 Limitations: no limitations HENMT: Head: normal to inspection, normocephalic and atraumatic Ears: hearing grossly normal bilaterally, external ears normal, TM's normal bilaterally, EAC's normal and no periauricular adenopathy Face/Nose/Sinus: Normal external nose present, Abnormal mucous membranes and turbinates present erythematous bilateral and diffuse, normal facial exam, sinuses nontender and face symmetric Face and sinus: normal facial exam, sinuses nontender and face symmetric Mouth: Yes Normal oral and palatal mucosa present, Yes lip normal, Yes tongue normal, Yes Normal salivary glands and ducts present, Yes oropharynx normal and Yes moist mucous membranes Teeth and gingiva: dentition normal Throat: uvula midline, abnormal tonsil bilateral erythema, exudates, hypertrophy 2+ and pitting and posterior oropharynx abnormal erythema Eyes: General: appearance normal, both eyes and all related structures Alignment and Position: alignment normal and position normal Periorbital: periorbital findings normal Eyelids: eyelids normal Pupils: Equal, round and reactive pupils present Neck: Neck: normal visual inspection, full ROM, no lymphadenopathy and supple Chest: Chest palpation & inspection: normal inspection of the chest and normal palpation of entire chest wall Resp: Effort & Inspection: normal respiratory effort and able to speak in comp lete sentences Auscultation: clear to auscultation bilaterally, no crackles, no rales, no rhonchi and no wheezes Cardio: Rate: tachycardic Rhythm: regular rhythm Heart sounds: S1 normal heart sound present and S2 normal heart sound present GI: Inspection: normal to inspection Skin: General skin exam: normal color and no rashes or lesions noted Neuro: General: patient oriented x3 and moves all extremities Cranial nerves: Yes Equal, round and reactive pupils present Speech: normal speech Gait exam (Neuro): Normal gait present Extrem: General: normal to inspection, full ROM and no edema Psych: Appearance: grossly normal and well kempt Mental Status: mental status grossly normal Speech and movement: Normal speech and movement present Affect: normal affect Attitude: cooperative Thought process: Normal thought process present Course Course Emergency Course: Discharge instructions reviewed with patient, as well as provided in writing per nursing staff. The instructions also include specific and strict return/GO TO THE ER as well as f/u information. All questions have been answered, and the patient deny any further questions with discharge and discharge plan. Portions of this record may have been created with voice recognition software Level of Care: Express Care Visit Vital Signs Vital signs: Vital Signs Temperature 36.8 C 04/19/24 09:05 Pulse Rate 122 H 04/19/24 09:05 Respiratory Rate 18 04/19/24 09:05 Blood Pressure 94/74 L 04/19/24 09:05 Pulse Oximetry 100 04/19/24 09:05 Oxygen Delivery Room Air 04/19/24 09:05 Temperature 36.8 C 04/19/24 09:05 Pulse Rate 122 H 04/19/24 09:05 Respiratory Rate 18 04/19/24 09:05 Blood Pressure 94/74 L 04/19/24 09:05 Pulse Oximetry 100 04/19/24 09:05 Oxygen Delivery Room Air 04/19/24 09:05 Reviewed MDM - URI/Sore Throat MDM Narrative Medical decision making narrative: Pt well hydrated appearing, in no respiratory distress, hemodynamically stable. Recommend supportive care. The patient is stable at time of discharge the clinical impression was discussed and the patient was given the opportunity to ask questions, which were addressed as completely as possible given the information available at present. Anticipatory guidance and return to care precautions were discussed and the importance of primary care follow-up was stressed and encouraged. The patient voiced understanding of the plan, indications to return, and the need for follow-up. Differential diagnosis considered: Thompson virus, strep pharyngitis, allergic rhinitis, upper respiratory tract infection, sinusitis, rhinosinusitis, nasopharyngitis. viral pharyngitis, otitis media, otitis externa, otitis effusion, foreign body, cerumen impaction, viral syndrome, and influenza.? Exam findings show no acute concerns or changes; patient is non-toxic appearing and is in no distress.? Patient is appropriate for outpatient treatment and follow- up.? Medical Records Attestation: I reviewed the patient's medical records. Lab Data Attestation: I reviewed the patient's lab results. Labs: Lab Results 04/19/24 Range/Units 09:37 POC Influenza A Ag Positive (Negative) POC Influenza B Ag Negative (Negative) POC SARS CoV-2 Ag Negative (Negative) POC Grp A Strep Screen Positive (Negative) Discharge Plan Discharge Clinical Impression: Strep throat, Influenza A Patient Disposition: Home, Self-Care Condition: Stable Instructions: Strep Throat (ED), Influenza (ED) Additional Instructions: Your rapid strep swab was positive today at [facility]. After 24 hours on antibiotics throw tooth brush away and start using a new one. Wash your sheets and cup/water bottle that is used daily. Do not share drinks. Take Motrin alternating with Tylenol for pain and fever alternating every 4 hours. Increase fluids, avoid caffeine. Were positive for influenza A. Your Covid is negative Your symptoms are due to a viral illness, which is not treated with antibiotics. Viral symptoms can be present for up to a few weeks. -For fever/pain, you may take: Tylenol 650-1000mg by mouth every 4-6 hours. Do not exceed 4000mg in 24 hours. Advil (Ibuprofen) 600 mg by mouth every 6 hours. Do not exceed 2400mg in 24 hours. 8 AM: Tylenol 11 AM: Ibuprofen 2 PM: Tylenol 5 PM: Ibuprofen 8 PM: Tylenol 11 PM: Ibuprofen 2 AM: Tylenol 5 AM: Ibuprofen -Antihistamine medication such as Benadryl/Zyrtec at night and Claritin/Miriam during the day can help improve symptoms. -Use Flonase twice a day for 5 days then daily to help reduce the inflammation and dry up your sinuses. -You can also use Sudafed behind the pharmacy counter(12 or 24 hour). Be sure to drink plenty of water with these medications at least 8 ounces with every dose and it is important to drink 8 to 10 glasses of water per day. Water is a natural decongestant -Eat and drink things that are easy to swallow, like tea or soup, or popsicles. -Oral rinses such as: Salt water gargles and/or may use topical anesthetic (eg. Chloraseptic spray) or lozenges to relieve dryness or throat pain). -Frequent hand washing or hand claim administrator is one of the best ways to prevent spread of infection. -Using a vaporizer or humidifier at night will also help thin secretions and help with coughing up phlegm. -Follow up with primary care provider in 3-5 days if condition is not improving - For new or worsening symptoms go directly to the nearest ER Patient Language: Citizen Of [place] Prescriptions: New amoxicillin 500 mg capsule 500 mg PO BID 10 Days Qty: 20 0RF No Action cholecalciferol (vitamin D3) [Vitamin D3] 125 mcg (5,000 unit) Tablet 250 mcg PO Q48H albuterol sulfate 90 mcg/actuation HFA aerosol inhaler 2 puff inhalation Q4H PRN (Reason: shortness of breath or wheezing) Follow-up/Referrals: PHYSICIAN,DOOR TO DOOR SALES REPRESENTATIVE [Primary Care Provider] - Nick Pacheco MD [Physician] - 3 Days ([facility]) Stand Alone Forms: Work/School Release IP Time of Disposition: 09:36
[2024-04-19 09:44] LABS: EDCOVIDSCREEN Negative (Negative); EDINFLUASCREEN Positive (Negative); EDINFLUBSCREEN Negative (Negative); EDSTREPNEGPOS1 Positive (Negative)
== END 2024-04-19 09:40 | disposition home or self-care (01) ==
PROVIDERS: Emergency Provider Nurse Practitioner Family
DX: J02.0 Streptococcal pharyngitis (principal); J10.1 Influenza due to other identified influenza virus with other respiratory manifestations; Z20.822 Contact with and (suspected) exposure to COVID-19; J45.909 Unspecified asthma, uncomplicated
CPT/HCPCS: 87426; 87804; 87880; 99213; G0463